=== PATIENT | male | born 1970 | race Two or more races ===

== ENCOUNTER 2021-04-12 10:25 | Inpatient (IN) | payer BC ==
--- NOTE | 2021-04-09 23:11 | NUR ---
PATIENT SUPPORT REPRESENTATIVE NON ADMIT HEPARIN PT IS POST OF NO BLOOD THINNERS FOR AT LEAST 24 HOURS.
[~2021-04-12] VITALS: Ht 188 cm; Wt 97.1 kg
--- NOTE | 2021-04-12 10:39 | NUR ---
PT BIB [facility] FROM HOME C/O LEFT LEG PAIN, HE TOOK "OXY" & NOT HELPING. PT A/OX4. TOLERATING R/A WELL WITH NO SOB AT 98%. SKIN INTACT. CONNECTED PT TO POX AND MONITOR.
--- NOTE | 2021-04-12 10:47 | NUR ---
DR SILVA AT THE BEDSIDE
[2021-04-12] MEDS ORDERED: KETOROLAC TROMETHAMINE INJ 30 MG/ML VIAL IV ONE (11:00)
[2021-04-12 11:21] LABS: BASOPHILS # (AUTO) 0.4 K/uL (0.0-0.2); BASOPHILS % (AUTO) 2.2 % (0.0-2.0); EOSINOPHILS % (AUTO) 0.2 % (0.0-6.0); HEMATOCRIT 54 % (39-51); HEMOGLOBIN 17.9 g/dL (13.5-17.5); LYMPHOCYTES % (AUTO) 5.4 % (20.0-44.0); MEAN CORPUSCULAR HGB CONC 33 g/dl (31.0-36.0); MEAN CORPUSCULAR VOLUME 91 fL (80-96); MONOCYTES # (AUTO) 1.1 K/uL (0.1-1.30); MONOCYTES % (AUTO) 5.9 % (2.0-12.0); NEUTROPHILS # (AUTO) 16.2 K/uL (1.8-8.9); NEUTROPHILS % (AUTO) 86.3 % (43.0-81.0); PLATELET COUNT (AUTO) 257 K/uL (150-450); RED BLOOD CELL COUNT(AUTO) 5.93 MIL/uL (4.5-6.0); WHITE BLOOD COUNT (AUTO) 18.8 K/uL (4.3-11.0)
[2021-04-12] MEDS ORDERED: KETOROLAC TROMETHAMINE 15 MG/ML VIAL ONE (11:24)
--- NOTE | 2021-04-12 11:24 | NUR ---
STEVEN #22G S/L; PATENT AND INTACT
[2021-04-12 12:19] LABS: ALANINE AMINOTRANSFERASE < 6 U/L (12-78); ALBUMIN 3.7 g/dL (3.4-5.0); ALKALINE PHOSPHATASE 74 U/L (46-116); BILIRUBIN,DIRECT 0.3 mg/dL (0.0-0.2); BILIRUBIN,TOTAL 0.7 mg/dL (0.2-1.0); CALCIUM, SERUM 7.2 mg/dL (8.5-10.1); CARBON DIOXIDE 21 mmol/L (21-32); CHLORIDE 94 mmol/L (98-107); CREATININE 4.7 mg/dL (0.6-1.3); GLUCOSE 127 mg/dL (74-106); SODIUM SERUM 127 mmol/L (136-145); TOTAL PROTEIN, SERUM 7.3 g/dL (6.4-8.2); UREA NITROGEN, BLOOD 55 mg/dL (7-18)
[2021-04-12 12:23] LABS: ASPARTATE AMINOTRANSFERASE < 5 U/L (15-37)
[2021-04-12 12:24] LABS: POTASSIUM 6.4 mmol/L (3.5-5.1)
--- NOTE | 2021-04-12 12:26 | NUR ---
K - 6.4. SHIRA SHAHID AWARE
[2021-04-12] MEDS ORDERED: IOHEXOL-300 100 ML VIAL IV ONE (12:28)
--- NOTE | 2021-04-12 12:45 | NUR ---
PT TAKEN TO CT VIA JORGE
--- NOTE | 2021-04-12 12:48 | NUR ---
MOVE SHEET SUBMITTED.
[2021-04-12] MEDS ORDERED: METF-440 PO (12:58)
[2021-04-12] MEDS ORDERED: TEST200V3 IM (12:58)
[2021-04-12] MEDS ORDERED: CHOL100062 PO (12:58)
--- NOTE | 2021-04-12 13:01 | NUR ---
X-RAY TECH AT THE BEDSIDE
--- NOTE | 2021-04-12 13:33 | NUR ---
COVID SWAB DONE AND SENT TO LAB
[2021-04-12] MEDS ORDERED: MAG HYDROX/AL HYDROX/SIMETH 30 ML UDC PO PRN (14:00)
[2021-04-12] MEDS ORDERED: ZOLPIDEM TARTRATE 5 MG TABLET PO PRN (14:00)
[2021-04-12] MEDS ORDERED: Z GUARD REMEDY 2 OZ OINT TP PRN (14:00)
[2021-04-12] MEDS ORDERED: ACETAMINOPHEN 325 MG TABLET PO PRN (14:00)
[2021-04-12] MEDS ORDERED: IV NS 0.9% 1,000 ML IV PRN (14:00)
[2021-04-12] MEDS: IV NS 0.9% 1,000 ML IV PRN ×2 (14:15→22:35)
[2021-04-12] MEDS ORDERED: IV NS 0.9% 1,000 ML BAG IV ONE (15:00)
[2021-04-12] MEDS ORDERED: MORPHINE SULFATE INJ 4 MG/ML DISP.SYRIN ONE (15:58)
--- NOTE | 2021-04-12 16:06 | NUR ---
urine collected and sent to the lab
[2021-04-12] MEDS: MORPHINE SULFATE INJ 2 MG/ML DISP.SYRIN IV PRN (16:07)
[2021-04-12] MEDS ORDERED: SODIUM POLYSTYRENE SULFONATE 15 G/60 ML BOTTLE PO ONE (17:30)
[2021-04-12] MEDS ORDERED: DEXTROSE 50%-WATER 50 ML DISP.SYRIN IVP ONE (17:30)
[2021-04-12] MEDS ORDERED: INSULIN REGULAR, HUMAN 100 UNIT/ML 10 ML VIAL IV ONE (17:30)
[2021-04-12 17:49] LABS: CALCIUM, SERUM 6.4 mg/dL (8.5-10.1); CREATININE 5.6 mg/dL (0.6-1.3)
[2021-04-12] MEDS ORDERED: VANCOMYCIN 1.5 GM in IV D5W 500 ML IV ONE (18:00)
[2021-04-12] MEDS ORDERED: SODIUM POLYSTYRENE SULFONATE 15 G/60 ML BOTTLE ONE (18:04)
[2021-04-12] MEDS ORDERED: DEXTROSE 50%-WATER 50 ML DISP.SYRIN ONE (18:04)
[2021-04-12] MEDS ORDERED: INSULIN REGULAR, HUMAN 100 UNIT/ML 10 ML VIAL ONE (18:05)
[2021-04-12] MEDS ORDERED: LORAZEPAM INJ 2 MG/ML VIAL ONE (18:14)
--- NOTE | 2021-04-12 18:15 | NUR ---
MIDLINE INSERTION PER TOUR CONSULTANT ROBIN. THE ORDER IS READ BACK, VERIFIED. NOTED AND CARRIED OUT.
[2021-04-12] MEDS ORDERED: ALBUTEROL FS 2.5 MG/3 ML VIAL.NEB NEB ONE (18:30)
[2021-04-12] MEDS ORDERED: CALCIUM CHLORIDE 1,000 MG/10 ML DISP.SYRIN IV ONE (18:30)
[2021-04-12] MEDS: PIPERACILLIN /TAZOBACTAM 2.25 G in IV D5W 50 ML IV SCH (18:30)
[2021-04-12] MEDS ORDERED: ALBUTEROL FS 2.5 MG/3 ML VIAL.NEB ONE (18:36)
--- NOTE | 2021-04-12 18:37 | NUR ---
NURSING SUP CALLED AND WANTS CONSENT FORM WITH INFORMATION FAXED TO HER AT [id number]
[2021-04-12] MEDS: LORAZEPAM INJ 2 MG/ML VIAL IV PRN (18:41)
[2021-04-12] MEDS ORDERED: CALCIUM CHLORIDE 1,000 MG/10 ML DISP.SYRIN ONE (18:56)
--- NOTE | 2021-04-12 19:04 | NUR ---
PT GOING TO ICU BED 259 AFTER O.R.
[2021-04-12] MEDS ORDERED: ANESTHESIA TRAY IN PYXIS 1 EA TRAY MC ONE (19:16)
[2021-04-12] MEDS ORDERED: POLYMYXIN B SULFATE 0 UNITS ONE (19:16)
[2021-04-12] MEDS ORDERED: LIDOCAINE HCL/MPF 1% 30 ML VIAL IJ ONE (19:17)
[2021-04-12] MEDS ORDERED: BUPIVACAINE 0.5 % PF 150 MG/30 ML VIAL ONE (19:17)
[2021-04-12] MEDS ORDERED: FENTANYL PF 100MCG/2ML AMPUL ONE (19:24)
[2021-04-12] MEDS ORDERED: ROCURONIUM BROMIDE 50 MG/5 ML ONE ×2 (19:24→20:26)
[2021-04-12] MEDS ORDERED: MIDAZOLAM HCL 2 MG/2ML VIAL ONE (19:24)
[2021-04-12] MEDS ORDERED: BUPIVACAINE 0.25% 75 MG/30 ML VIAL ONE (19:41)
--- NOTE | 2021-04-12 19:43 | NUR ---
REPORT GIVEN TO ICU NURSE
[2021-04-12] MEDS ORDERED: NOREPINEPHRINE 8 MG in IV NS 0.9% 242 ML IV PRN (20:00)
[2021-04-12] MEDS ORDERED: GELATIN SPONGE,ABSORBABLE 1 SPONGE SPONGE TP ONE (20:50)
[2021-04-12] MEDS ORDERED: THROMBIN (BOVINE) 5,000 UNITS VIAL TP ONE (20:51)
[2021-04-12] MEDS ORDERED: HYDROGEN PEROXIDE 480 ML BOTTLE ONE (20:57)
[2021-04-12] MEDS ORDERED: HYDROMORPHONE 1 MG/1 ML DISP.SYRIN ONE (21:39)
[2021-04-12 22:15] VITALS: BP 133/73
--- NOTE | 2021-04-12 22:15 | NUR ---
AIRCRAFT ENGINE MECHANIC SUPERVISOR RCD FROM SURGERY S/P LEFT BUTTOCK AND THIGH FASCIOTOMY W/WOUND VAC. PT IS LETHARGIC AND RESTLESS NOTED WITH GENERALIZED RASH TO BACK AND ABDOMEN. NSR ON MONITOR PLACED ON SIMPLA MASK PT NOTED TO DESATURATE. MARC CATH IN PLACE DRAINING DARK GARRICK URINE. ORDER FOR NS@ 250 ML/HR NOTED.
[2021-04-12 23:00] VITALS: BP 135/87
[2021-04-12 23:08] VITALS: BP 133/73
[2021-04-12] MEDS: HEPARIN SODIUM, PORCINE 5000 UNITS/1 ML VIAL SQ SCH (23:11)
[2021-04-12 23:30] VITALS: BP 136/82
[2021-04-12] MEDS ORDERED: PIPERACILLIN /TAZOBACTAM 2.25 G VIAL IV ONE (23:52)
--- NOTE | 2021-04-12 23:59 | NUR ---
CERTIFIED WELLNESS PROGRAM COORDINATOR VERIFIED W/MD OKAY TO GIVE ZOSYN DESPITE PCN ALLERGY
[2021-04-13] VITALS (48 sets, daily range): BP systolic 101–148; BP diastolic 61–92
[2021-04-13 00:06] LABS: CALCIUM, SERUM 6.4 mg/dL (8.5-10.1); CREATININE 5.8 mg/dL (0.6-1.3)
[2021-04-13 00:10] LABS: POTASSIUM 6.6 mmol/L (3.5-5.1)
--- NOTE | 2021-04-13 00:10 | NUR ---
POLE FRAMER MACHINE NOTIFIED OF ABG AND K 6.6 W/ORDERS RCD.
[2021-04-13] MEDS ORDERED: FUROSEMIDE 40 MG/4 ML VIAL IV STA (00:13)
[2021-04-13] MEDS ORDERED: INSULIN REGULAR, HUMAN 100 UNIT/ML 10 ML VIAL IV STA (00:13)
[2021-04-13] MEDS ORDERED: DEXTROSE 50%-WATER 50 ML DISP.SYRIN IVP STA (00:13)
[2021-04-13] MEDS ORDERED: SODIUM POLYSTYRENE SULFONATE 15 G/60 ML BOTTLE RC STA (00:13)
[2021-04-13] MEDS ORDERED: INSULIN REGULAR, HUMAN 100 UNIT/ML 3 ML VIAL ONE (00:41)
[2021-04-13] MEDS ORDERED: SODIUM POLYSTYRENE SULFONATE 15 G/60 ML BOTTLE ONE (00:42)
[2021-04-13 00:45] LABS: ABG BASE EXCESS -7.8 mmol/L; ABG OXYGEN SATURATION 92.8 % (92.0-98.5); ABG PCO2 37.1 mmHg (35.0-45.0); ABG PO2 73.2 mmHg (75.0-100.0); AaDO2 169.3 mmHg; COHb 0.7 % (0.5-1.5); MetHb 0.2 % (0.0-1.5); SITE, ABG Right Radial; VENT MODE, BG SIMPLE MASK 40%
[2021-04-13] MEDS ORDERED: SODIUM BICARBONATE SYR 50 MEQ/50 ML DISP.SYRIN IV ONE ×2 (01:00→07:30)
[2021-04-13] MEDS ORDERED: IV NS 0.9% 250 ML IV PRN (01:00)
[2021-04-13] MEDS: IV NS 0.9% 1,000 ML IV PRN ×7 (03:25→21:06)
[2021-04-13 04:20] LABS: HEMATOCRIT 41 % (39-51); HEMOGLOBIN 13.6 g/dL (13.5-17.5); LYMPHOCYTES # (AUTO) 0.6 K/uL (0.8-4.8); LYMPHOCYTES % (AUTO) 3.6 % (20.0-44.0); MEAN CORPUSCULAR HGB CONC 34 g/dl (31.0-36.0); MEAN CORPUSCULAR VOLUME 91 fL (80-96); MONOCYTES # (AUTO) 0.8 K/uL (0.1-1.30); MONOCYTES % (AUTO) 4.9 % (2.0-12.0); NEUTROPHILS # (AUTO) 15.2 K/uL (1.8-8.9); NEUTROPHILS % (AUTO) 91.5 % (43.0-81.0); PLATELET COUNT (AUTO) 216 K/uL (150-450); RED BLOOD CELL COUNT(AUTO) 4.47 MIL/uL (4.5-6.0); WHITE BLOOD COUNT (AUTO) 16.6 K/uL (4.3-11.0)
[2021-04-13 04:37] LABS: CREATININE 6.6 mg/dL (0.6-1.3); MAGNESIUM 2.4 mg/dL (1.8-2.4); PHOSPHORUS 6.2 mg/dL (2.5-4.9)
[2021-04-13 04:50] LABS: THYROID STIMULATING HORMONE 0.862 uIU/mL (0.358-3.74)
--- NOTE | 2021-04-13 05:18 | NUR ---
TAXI DANCER 110 ML TOTAL URINE OUTPUT WELL POTASSIUM 6.[address] JESÚS Salvador/ORDERS FOR NEPHROLOGY TO FOLLOW UP.
[2021-04-13 05:20] LABS: CALCIUM, SERUM 5.8 mg/dL (8.5-10.1); POTASSIUM 6.6 mmol/L (3.5-5.1)
[2021-04-13] MEDS ORDERED: PIPERACILLIN /TAZOBACTAM 2.25 G VIAL IV ONE (05:26)
[2021-04-13 05:27] LABS: CREATINE KINASE, TOTAL > 1000 U/L (39-308)
[2021-04-13] MEDS: PIPERACILLIN /TAZOBACTAM 2.25 G in IV D5W 50 ML IV SCH ×5 (05:30→23:25)
--- NOTE | 2021-04-13 06:00 | NUR ---
B2B SALES REPRESENTATIVE PT INCREASINGLY WAKING UP WANTING TO WALK AROUND; RESTLESS PULLING AT IV AND LEADS; REORIENT PT INEFFECTIVE HE HAS EPISODES OF LETHARGY/RESTLESSNESS; BSWR PLACED AT THIS TIME TO PREVENT PT FROM REMOVING MEDICAL DEVICES OR GETTING OUT BED. SISTER MALI PREVIOUSLY EDUCATED ON THE NEED FOR POSSIBLE RESTRAINTS.
--- NOTE | 2021-04-13 07:15 | NUR ---
RN NOTES RECEIVED PT AWAKE. A/O X2-3. ON 8L O2 VIA SIMPLE MASK. NO SOB OR ANY S/S OF ACUTE RESPIRATORY DISTRESS NOTED. SR-ST ON THE MONITOR. L NARE NG TUBE IN PLACE. POSITIVE PLACEMENT CHECKED. MARC CATH IN PLACE. DRAINING YELLOW COLORED URINE. BILATERAL SOFT WRIST RESTRAINTS NOTED, CHECKED FOR CIRCULATION PER PROTOCOL. S/P L BUTTOCK AND L THIGH FASCIOTOMY, WOUND VAC IN PLACE. IV ACCESS ON STEVEN MIDLINE, RFA #22 AND R IJ ALL INTACT, PATENT AND FLUSHED. RUNNING 350ML/HR, INFUSING WELL. SAFETY MEASURES IN PLACE. CALL LIGHT WITHIN REACH. BED LOCKED AND IN LOWEST POSITION WITH SIDE RAILS UP X3. WILL CONTINUE TO MONITOR.
[2021-04-13] MEDS ORDERED: DEXTROSE 50%-WATER 50 ML DISP.SYRIN IVP SCH (07:30)
[2021-04-13] MEDS ORDERED: MINERAL OIL 133 ML (PYXIS) 1 EA ENEMA RC ONE (07:30)
[2021-04-13] MEDS ORDERED: Calcium Gluconate 1GM/10ML 4.65 MEQ in IV D5W 50 ML IV ONE (08:00)
[2021-04-13] MEDS ORDERED: INSULIN REGULAR, HUMAN 100 UNIT/ML 10 ML VIAL IV ONE (08:00)
--- NOTE | 2021-04-13 08:56 | NUR ---
WOUND CARE CONSULT: PT PRESENTS WITH [employer] WOUND VAC TO LEFT BUTTOCK AND THIGH WITH 675ccRED DRAINAGE IN CANISTER. DISCUSSED SKIN PROTECTION WITH NURSING STAFF. MD IN AGREEMENT WITH PLAN OF CARE.
[2021-04-13] MEDS: PANTOPRAZOLE 40 MG VIAL IV SCH (09:04)
[2021-04-13] MEDS: HEPARIN SODIUM, PORCINE 5000 UNITS/1 ML VIAL SQ SCH ×2 (09:15→20:36)
--- NOTE | 2021-04-13 09:27 | NUR ---
WOUND CARE: CANISTER CHANGED WITH 675cc RED DRAINAGE. PHOTO TAKEN BY RN OF LEFT BUTTOCK/THIGH VAC DRESSINGS. ORTHO SURGEON IN TO SEE PT.
[2021-04-13] MEDS ORDERED: HEPARIN SODIUM, PORCINE 5000 UNITS/1 ML VIAL IV ONE (10:00)
[2021-04-13] MEDS: MORPHINE SULFATE INJ 2 MG/ML DISP.SYRIN IV PRN ×3 (10:43→22:32)
--- NOTE | 2021-04-13 11:00 | NUR ---
RN NOTES RIGHT IJ HD CATH PLACED BY DR. BEY AT BEDSIDE. VS STABLE. STAT XRAY ORDERED FOR PLACEMENT.
[2021-04-13] MEDS ORDERED: CLINDAMYCIN IV RTU IN D5W 900 MG/50 ML PIGGYBACK IV SCH (12:00)
[2021-04-13] MEDS: CLINDAMYCIN 900 MG in IV D5W 50 ML IV SCH ×2 (12:34→20:55)
[2021-04-13 13:01] LABS: CREATININE 7.5 mg/dL (0.6-1.3)
[2021-04-13 13:03] LABS: CALCIUM, SERUM 5.8 mg/dL (8.5-10.1); POTASSIUM 6.6 mmol/L (3.5-5.1)
--- NOTE | 2021-04-13 16:20 | NUR ---
RN NOTES HD DONE, OUTPUT OF 500ML. VS STABLE. NOT IN DISTRESS.
[2021-04-13] MEDS ORDERED: VANCOMYCIN 500 MG in IV D5W 100 ML IV PRN (17:00)
--- NOTE | 2021-04-13 19:50 | NUR ---
RN OPENING NOTE ICU REC'D PT IN BED ON 4L OF O2 VIA NC, PT NOT IN DISTRESSED, NO SOB. PT IS A/O X4, ST WITH HR 100 ON THE TELE MONITOR. PT REMAINS WITH WOUND VAC ON LEFT LEG/BUTTOCK AREA, DRAINING SANGUINEOUS FLUID. PT HAS MARC DRAINING VIA GRAVITY, PT HAS RIJ,HD CATH, INTACT. ALSO STEVEN #22, STEVEN MIDLINE BLOOD RETURN NOTED, AND REJ #18 FLUSHED INTACT. RUNNING IVF NS 0.9% @ 350 ORDERED. PT IS S/P HD TODAY. PT IS NPO, AND AWARE. AT THIS TIME NEEDS ATTENDED. SAFETY MEASURES IN PLACE. CALL LIGHT WITHIN REACH WILL CONT TO MONITOR.
--- NOTE | 2021-04-13 20:19 | NUR ---
RN NOTES HD OUTPUT 500ML. VS STABLE. ON 4L O2 VIA NC, NO SOB OR ANY DISTRESS. DENIES PAIN. ALL DUE MEDS GIVEN. NEEDS ATTENDED. KEPT CLEAN AND COMFORTABLE. COMFORTABLY RESTING IN BED. SAFETY MEASURES IN PLACE. CALL LIGHT WITHIN REACH. ENDORSED TO NIGHT RN FOR LEON.
--- NOTE | 2021-04-13 20:34 | NUR ---
RN NOTE HOLD HEPARIN DOSE TONIGHT PER MANUFACTURING FINANCE MANAGER MD ESPINOSA, PT S/P FASCIOTOMY. TO FOLLOW UP IN THE MORNING.
--- NOTE | 2021-04-13 21:45 | NUR ---
RN NOTE GAVE UPDATE TO SISTER MALI TO VISIT TOMORROW
[2021-04-13] MEDS: LORAZEPAM INJ 2 MG/ML VIAL IV PRN (23:58)
[2021-04-14] VITALS (32 sets, daily range): BP systolic 108–138; BP diastolic 67–81
[2021-04-14] MEDS: IV NS 0.9% 1,000 ML IV PRN ×4 (02:26→12:33)
[2021-04-14] MEDS: CLINDAMYCIN 900 MG in IV D5W 50 ML IV SCH (04:31)
[2021-04-14 04:34] LABS: HEMATOCRIT 31 % (39-51); HEMOGLOBIN 10.4 g/dL (13.5-17.5); LYMPHOCYTES # (AUTO) 0.6 K/uL (0.8-4.8); LYMPHOCYTES % (AUTO) 5.6 % (20.0-44.0); MEAN CORPUSCULAR HGB CONC 34 g/dl (31.0-36.0); MEAN CORPUSCULAR VOLUME 91 fL (80-96); MONOCYTES # (AUTO) 1.5 K/uL (0.1-1.30); NEUTROPHILS # (AUTO) 9.2 K/uL (1.8-8.9); NEUTROPHILS % (AUTO) 81.4 % (43.0-81.0); PLATELET COUNT (AUTO) 146 K/uL (150-450); RED BLOOD CELL COUNT(AUTO) 3.37 MIL/uL (4.5-6.0); WHITE BLOOD COUNT (AUTO) 11.4 K/uL (4.3-11.0)
[2021-04-14] MEDS: MORPHINE SULFATE INJ 2 MG/ML DISP.SYRIN IV PRN ×4 (04:35→21:01)
[2021-04-14 04:55] LABS: ALBUMIN 2.1 g/dL (3.4-5.0); ALKALINE PHOSPHATASE 41 U/L (46-116); BILIRUBIN,DIRECT 0.2 mg/dL (0.0-0.2); BILIRUBIN,TOTAL 0.5 mg/dL (0.2-1.0); CARBON DIOXIDE 23 mmol/L (21-32); CHLORIDE 103 mmol/L (98-107); CREATININE 6.7 mg/dL (0.6-1.3); GLUCOSE 102 mg/dL (74-106); PHOSPHORUS 6.2 mg/dL (2.5-4.9); POTASSIUM 5.5 mmol/L (3.5-5.1); SODIUM SERUM 135 mmol/L (136-145); TOTAL PROTEIN, SERUM 4.3 g/dL (6.4-8.2); UREA NITROGEN, BLOOD 61 mg/dL (7-18)
[2021-04-14 05:00] LABS: ALANINE AMINOTRANSFERASE > 1000 U/L (12-78); ASPARTATE AMINOTRANSFERASE > 1000 U/L (15-37)
[2021-04-14 05:03] LABS: CALCIUM, SERUM 5.5 mg/dL (8.5-10.1)
[2021-04-14] MEDS: PIPERACILLIN /TAZOBACTAM 2.25 G in IV D5W 50 ML IV SCH (05:09)
[2021-04-14] MEDS ORDERED: Calcium Gluconate 1GM/10ML 9.3 MEQ in IV D5W 250 ML IV ONE (07:00)
--- NOTE | 2021-04-14 07:23 | NUR ---
WOUND CARE CONSULT: WOUND VAC TO LEFT BUTTOCK AND THIGH FUNCTIONING WELL AT 125mm Hg CONTINUOUS SETTING.
--- NOTE | 2021-04-14 07:30 | NUR ---
RN NOTES PT FOUND SLEEPING DISPLAYING NO S/S OF DISTRESS FLACC = 0 AND BREATHING IS EVEN AND UNLABORED ON 2L O2 NC. R UA MIDLINE, R EJ 18G, R IJ PERMACATH ARE ALL INTACT AND CLEAN. WOUND VAC SUCTIONING AT 125 MMHG, MARKED AT START OF SHIFT. MARC CATH BELOW PATIENT DRAINING BY GRAVITY. VSS, RN WILL MONITOR AND TREAT THROUGHOUT SHIFT. SAFETY MEASURES IN PLACE, BED LOCKED AND IN LOWEST POSITION, SIDE RAILS UPX2, CALL LIGHT WITHIN REACH, BED ALARM ARMED.
--- NOTE | 2021-04-14 07:40 | NUR ---
RN CLOSING NOTE ICU PT BEHAVIOR REMAINS THE SAME, PT SPENT MAJORITY OF NIGHT SLEEPING, PT REFUSED FULL BED BATH, REQUESTED TO BE WHEN MORE AWAKE. PT STILL TURNED AND REPOSITIONED. WOUND VAC OUTPUT IS 300ML. LEGS ARE ELEVATED. PT RECEIVED MORPHINE AND ATIVAN PRN ORDERED FOR PAIN AND AGITATION/ANXIETY. CONTINUOUS IV FLUIDS RUNNING ORDERED. PT CALCIUM IS 5.5, NOTIFIED SAFETY INTERN JESÚS, ORDERS FOR 2GM CALCIUM GLUCONATE CARRIED OUT. DR FREED ALSO NOTIFIED. PT CKMB <600 TRENDING DOWN COMPARED TO BEFORE >1000. SAFETY MEASURES IN PLACE, CALL LIGHT WITHIN REACH. ENDORSED TO DAY SHIFT RN FOR CONTINUATION OF CARE.
--- NOTE | 2021-04-14 08:37 | NUR ---
CRITICAL LAB CKMB > 600. RN WILL INFORM MD
[2021-04-14] MEDS: PANTOPRAZOLE 40 MG VIAL IV SCH (08:49)
[2021-04-14] MEDS: HEPARIN SODIUM, PORCINE 5000 UNITS/1 ML VIAL SQ SCH ×3 (09:00→21:01)
--- NOTE | 2021-04-14 12:30 | NUR ---
SEEN BY ,UPDATED ABOUT PATIENT PROCEDURE WILL BE PLANNING FOR TUESDAY, TO PLACE PATIENT ON RENAL DIET.
--- NOTE | 2021-04-14 16:35 | NUR ---
RN NOTE HD STARTED
--- NOTE | 2021-04-14 19:20 | NUR ---
RN NOTES PT CURRENTLY GETTING HD. PT CURRENTLY SLEEPING DISPLAYING NO S/S OF DISTRESS, FLACC = 0 AND BREATHING IS EVEN AND UNLABORED. WOUND VAC PRODUCED APPROX 200 ML THROUGHOUT SHIFT. DRESSINGS INTACT. VSS, SBAR AND REPORT GIVEN TO PLANT FACILITIES TECHNICIAN. SAFETY MEASURES IN PLACE, BED LOCKED AND IN LOWEST POSITION, SIDE RAILS UPX2, CALL LIGHT WITHIN REACH, BED ALARM ARMED. PT ENDORSED IN STABLE CONDITION FOR LEON, ALL QUESTIONS ANSWERED.
--- NOTE | 2021-04-14 19:30 | NUR ---
RN NOTES RECEIVED PATIETN ON DIALYSIS . ASLEEP WELL. WITH NO SOB OR C/O PAIN. NSR ON MONITOR. SATURATION 100%. IV SITE ON STEVEN MIDLINE, STEVEN G 22 AND REJ G 18 ARE INTACT AND PATENT. RIJ HD CATH IS USING FOR DIALYSIS. WOUND VAC FOR LEFT THIGH AND LT BUTTOCK KEPT SEALED NO LEAKING SOUND. KEPT PT CLEAN AND COMFORTABLE IN BED. CALL LIGHT WITHIN EASY REACH. WILL CONTINUE TO MONITOR.
--- NOTE | 2021-04-14 20:30 | NUR ---
RN NOTES DIALYSIS FINISHED WITH 500 ML REMOVED PER HD NURSE. PATIETN IS AWAKE AND ORIENTED, DINNER SERVED.
[2021-04-14] MEDS: LORAZEPAM INJ 2 MG/ML VIAL IV PRN (23:36)
[2021-04-15] VITALS (18 sets, daily range): BP systolic 124–143; BP diastolic 69–82
[2021-04-15 04:31] LABS: EOSINOPHILS % (AUTO) 0.2 % (0.0-6.0); HEMATOCRIT 29 % (39-51); HEMOGLOBIN 9.8 g/dL (13.5-17.5); LYMPHOCYTES # (AUTO) 1.2 K/uL (0.8-4.8); LYMPHOCYTES % (AUTO) 12.8 % (20.0-44.0); MEAN CORPUSCULAR HGB CONC 35 g/dl (31.0-36.0); MEAN CORPUSCULAR VOLUME 90 fL (80-96); MONOCYTES # (AUTO) 1.2 K/uL (0.1-1.30); MONOCYTES % (AUTO) 12.7 % (2.0-12.0); NEUTROPHILS # (AUTO) 6.9 K/uL (1.8-8.9); NEUTROPHILS % (AUTO) 74.3 % (43.0-81.0); PLATELET COUNT (AUTO) 135 K/uL (150-450); RED BLOOD CELL COUNT(AUTO) 3.16 MIL/uL (4.5-6.0); WHITE BLOOD COUNT (AUTO) 9.3 K/uL (4.3-11.0)
[2021-04-15 04:50] LABS: CREATINE KINASE, TOTAL 22161 U/L (39-308)
[2021-04-15 05:02] LABS: ALBUMIN 2.1 g/dL (3.4-5.0); ALKALINE PHOSPHATASE 42 U/L (46-116); ASPARTATE AMINOTRANSFERASE 787 U/L (15-37); BILIRUBIN,DIRECT 0.2 mg/dL (0.0-0.2); BILIRUBIN,TOTAL 0.7 mg/dL (0.2-1.0); CALCIUM, SERUM 6.6 mg/dL (8.5-10.1); CARBON DIOXIDE 24 mmol/L (21-32); CHLORIDE 103 mmol/L (98-107); CREATININE 6.4 mg/dL (0.6-1.3); GLUCOSE 103 mg/dL (74-106); PHOSPHORUS 5.9 mg/dL (2.5-4.9); POTASSIUM 4.1 mmol/L (3.5-5.1); SODIUM SERUM 136 mmol/L (136-145); TOTAL PROTEIN, SERUM 4.5 g/dL (6.4-8.2); UREA NITROGEN, BLOOD 55 mg/dL (7-18)
[2021-04-15 05:31] LABS: ALANINE AMINOTRANSFERASE > 1000 U/L (12-78)
[2021-04-15] MEDS: MORPHINE SULFATE INJ 2 MG/ML DISP.SYRIN IV PRN ×4 (06:34→22:15)
[2021-04-15] MEDS: IV NS 0.9% 1,000 ML IV PRN (06:36)
--- NOTE | 2021-04-15 07:00 | NUR ---
RN NOTES PATIENT ASLEEP WELL ON BED. BREATHING EVEN AND UNLABORED EVEN ON ROOM AIR. SATURATION REMAINED >95%. AFEBRILE. VSS. PAIN MEDICINE GIVEN ORDERED REMAINED EFFECTIVE. ALL NEEDS ATTENDED. KEPT PT CLEAN AND COMFORTABLE IN BED. CALL LIGHT PROMPTLY ATTENDED. ENDORSED CONTINUITY OF CARE TO AM NURSE.
--- NOTE | 2021-04-15 07:06 | NUR ---
WOUND CARE CONSULT: WOUND VAC CANISTER CHANGED WITH 1000cc RED DRAINAGE. VAC FUNCTIONING WELL AT 125mmHg CONTINUOUS SETTING FOR LEFT BUTTOCK AND THIGH WOUNDS.
--- NOTE | 2021-04-15 07:30 | NUR ---
RN NOTES PT FOUND SUPINE DISPLAYING NO S/S OF ACUTE DISTRESS, PT ENDORSES 8/10 PAIN AND BREATHING EVEN AND UNLABORED ON 2L O2 NC. IV PORTS (ALL 4 OF THEM) ARE PATIENT AND INTACT. WOUND VAC SUCTIONING AT 125 MMHG, CONTAINER JUST CHANGED. MARC CATH BELOW PATIENT DRAINING BY GRAVITY. VSS, WILL CONTINUE TO MONITOR AND TREAT. SAFETY MEASURES IN PLACE, BED LOCKED AND IN LOWEST POSITION, SIDE RAILS UPX2, CALL LIGHT WITHIN REACH, PT INSTRUCTED TO CALL FOR ASSISTANCE.
[2021-04-15] MEDS: HEPARIN SODIUM, PORCINE 5000 UNITS/1 ML VIAL SQ SCH ×2 (09:00→20:05)
[2021-04-15] MEDS: PANTOPRAZOLE 40 MG TABLET.DR PO SCH (09:20)
[2021-04-15] MEDS: CARVEDILOL 3.125 MG TABLET PO SCH ×2 (09:20→21:07)
--- NOTE | 2021-04-15 11:50 | NUR ---
TRANSFER TO ANOTHER UNIT RN CALLED AND GAVE REPORT TO 3W NURSE. PT TRANSPORTED VIA HOSPITAL BED ON BEDSIDE PORTABLE MONITOR. PT IS A&OX4, BREATHING EVEN AND UNLABORED, ENDORSING NO PAIN. ITEMS CHECKED AND BELONGINGS REVIEWED. SBAR AND CHART GIVEN TO 3W STAFF. PT ENDORSED IN STABLE CONDITION FOR LEON. ALL QUESTIONS ANSWERED.
--- NOTE | 2021-04-15 18:54 | NUR ---
COSTUME TECHNICIAN CLOSING NOTES Pt IS A/OX4, CURRENTLY SLEEPING. Pt IS ON 4L OF O2 VIA NASAL CANNULA. NO SIGNS OF RESPIRATORY DISTRESS. NO COMPLAINTS OF PAIN MADE AT THIS TIME, Pt RECEIVED PAIN MED AT 1735. R UA ML AND R IJ FOR HEMODIALYSIS. Pt IS ON TELE MONITOR AND CURRENTLY SINUS RHYTHM WITH 73 BPM. ALL NEEDS MET AT THIS TIME, ALL SAFETY MEASURES ARE IN PLACE, BED IS LOCKED AND IN LOWEST POSITION. CALL LIGHT AND BEDSIDE TABLE WITHIN REACH. WILL ENDORSE TO ONCOMING SHIFT.
--- NOTE | 2021-04-15 19:45 | NUR ---
SENIOR POWER SCHEDULER OPENING NOTES RECEIVED PT IN BED, AWAKE. AOx4, ABLE TO MAKE NEEDS KNOWN. ON 4L/MIN VIA NASAL CANNULA AND TOLERATING WELL. NO SOB NOTED. NO S/SX OF RESPIRATORY DISTRESS NOTED. TELE MONITOR DETECTS SINUS RHYTHM WITH RATE OF 83. IV ACCESS IN STEVEN MIDLINE AND HD R IJ. IV IS INTACT, PATENT, AND FLUSHING WELL. MARC CATHETER DRAINING CLEAR, YELLOW URINE. SAFETY PRECAUTIONS IN PLACE: BED IN LOWEST, LOCKED POSITION, SIDERAILS UPx2, AND BRAKES ON. TABLE AND CALL LIGHT WITHIN REACH. WILL CONTINUE TO MONITOR.
--- NOTE | 2021-04-15 22:15 | NUR ---
ADMINISTERED MORPHINE PER MD ORDER FOR PAIN. VS WNL. WILL CONTINUE TO MONITOR.
--- NOTE | 2021-04-15 22:34 | NUR ---
PER DAYSHIFT NURSE, DOCTOR ORDERED FOR HEPARIN TO BE HOLD PRIOR TO PROCEDURE.
[2021-04-16] VITALS: BP 143/66
[2021-04-16] MEDS: LORAZEPAM INJ 2 MG/ML VIAL IV PRN ×2 (00:07→19:55)
--- NOTE | 2021-04-16 00:07 | NUR ---
ADMINISTERED ATIVAN PER MD ORDER. VS WNL. WILL CONTINUE TO MONITOR.
[2021-04-16 06:48] LABS: BASOPHILS % (AUTO) 0.1 % (0.0-2.0); EOSINOPHILS % (AUTO) 1.7 % (0.0-6.0); HEMATOCRIT 29 % (39-51); LYMPHOCYTES # (AUTO) 1.2 K/uL (0.8-4.8); LYMPHOCYTES % (AUTO) 13.5 % (20.0-44.0); MEAN CORPUSCULAR HGB CONC 35 g/dl (31.0-36.0); MEAN CORPUSCULAR VOLUME 90 fL (80-96); MONOCYTES # (AUTO) 1.1 K/uL (0.1-1.30); MONOCYTES % (AUTO) 12.9 % (2.0-12.0); NEUTROPHILS # (AUTO) 6.3 K/uL (1.8-8.9); NEUTROPHILS % (AUTO) 71.8 % (43.0-81.0); PLATELET COUNT (AUTO) 152 K/uL (150-450); WHITE BLOOD COUNT (AUTO) 8.7 K/uL (4.3-11.0)
--- NOTE | 2021-04-16 06:49 | NUR ---
QA AUTOMATION DEVELOPER CLOSING NOTES PT IN BED, ASLEEP, AWAKENS TO VERBAL STIMULI. AOx4, ABLE TO MAKE NEEDS KNOWN. ON 4L/MIN VIA NASAL CANNULA AND TOLERATING WELL. NO SOB NOTED. NO S/SX OF RESPIRATORY DISTRESS NOTED. TELE MONITOR DETECTS SINUS RHYTHM WITH RATE OF 83. IV ACCESS IN STEVEN MIDLINE AND HD R IJ. IV IS INTACT, PATENT, AND FLUSHING WELL. MARC CATHETER DRAINING CLEAR, YELLOW URINE. ALL NEEDS MET. PT KEPT CLEAN AND DRY. TREATED PAIN ONCE DURING SHIFT. PT KEPT NPO AFTER MIDNIGHT. CONSENTS OBTAINED. SAFETY PRECAUTIONS IN PLACE: BED IN LOWEST, LOCKED POSITION, SIDERAILS UPx2, AND BRAKES ON. TABLE AND CALL LIGHT WITHIN REACH. WILL ENDORSE TO ONCOMING SHIFT FOR LEON.
[2021-04-16 07:16] LABS: BILIRUBIN,DIRECT 0.2 mg/dL (0.0-0.2); BILIRUBIN,TOTAL 0.7 mg/dL (0.2-1.0); MAGNESIUM 2.2 mg/dL (1.8-2.4); POTASSIUM 4.2 mmol/L (3.5-5.1); TOTAL PROTEIN, SERUM 4.6 g/dL (6.4-8.2)
[2021-04-16] MEDS: PANTOPRAZOLE 40 MG TABLET.DR PO SCH (07:30)
[2021-04-16] MEDS ORDERED: BUPIVACAINE 0.5 % PF 150 MG/30 ML VIAL ONE (07:40)
--- NOTE | 2021-04-16 07:45 | NUR ---
WORLD DESIGNER OPENING NOTES PT IN BED, AWAKE, AWAKENS TO VERBAL STIMULI. AOx4, ABLE TO MAKE NEEDS KNOWN. ON 4L/MIN VIA NASAL CANNULA AND TOLERATING WELL. NO SOB NOTED. NO S/SX OF RESPIRATORY DISTRESS NOTED. TELE MONITOR DETECTS SINUS RHYTHM WITH RATE OF 78. IV ACCESS IN STEVEN MIDLINE AND HD R IJ. IV IS INTACT, PATENT, AND FLUSHING WELL. MARC CATHETER DRAINING CLEAR, YELLOW URINE. SAFETY PRECAUTIONS IN PLACE: BED IN LOWEST, LOCKED POSITION, SIDE RAILS UPx2, AND BRAKES ON. TABLE AND CALL LIGHT WITHIN REACH. WILL CONTINUE TO MONITOR PATIENT.
[2021-04-16 08:00] VITALS: BP 145/77
[2021-04-16] MEDS: CARVEDILOL 3.125 MG TABLET PO SCH ×3 (08:02→21:48)
[2021-04-16] MEDS: HEPARIN SODIUM, PORCINE 5000 UNITS/1 ML VIAL SQ SCH ×2 (08:02→21:00)
[2021-04-16] MEDS ORDERED: FENTANYL PF 100MCG/2ML AMPUL ONE ×2 (09:43→10:36)
[2021-04-16] MEDS ORDERED: MIDAZOLAM HCL 2 MG/2ML VIAL ONE (09:44)
[2021-04-16] MEDS ORDERED: BUPIVACAINE 0.25% 75 MG/30 ML VIAL ONE (09:52)
[2021-04-16] MEDS ORDERED: HYDROGEN PEROXIDE 480 ML BOTTLE ONE (10:36)
[2021-04-16] MEDS ORDERED: THROMBIN (BOVINE) 5,000 UNITS VIAL TP ONE (10:39)
[2021-04-16] MEDS ORDERED: GELATIN SPONGE,ABSORBABLE 1 SPONGE SPONGE TP ONE (10:39)
[2021-04-16] MEDS ORDERED: HYDROMORPHONE 1 MG/1 ML DISP.SYRIN ONE ×2 (11:33→12:00)
--- NOTE | 2021-04-16 12:39 | NUR ---
PHOTOGRAPHER NOTES PATIENT BACK FROM OR, AWAKE, A/O X3. VITAL SIGNS: BP 151/90 HR 70 T 98 RR 18 OZ 100 ON 3 LPM VIA NASAL CANNULA.
--- NOTE | 2021-04-16 12:40 | NUR ---
POST OP ORDERS RESUME ALL MEDS AND DIET FIRST DRESSING CHANGE BY WOUND VAC AT 125 CONTINUOUS BEDREST
[2021-04-16 12:49] VITALS: BP 151/90
[2021-04-16] MEDS: MORPHINE SULFATE INJ 2 MG/ML DISP.SYRIN IV PRN ×3 (12:55→21:47)
--- NOTE | 2021-04-16 13:04 | NUR ---
TELEPHONE OPERATOR CHIEF NOTES PATIENT COMPLAINING OF POST OP PAIN 10 OUT OF 10 REQUESTING PAIN MEDICATION. BP 151/90 O2 100% ON 3 L. PRN MORPHINE 4MG/2MLS ADMINISTERED PER MD ORDER. WILL REASSESS.
[2021-04-16 15:56] VITALS: BP 149/83
[2021-04-16] MEDS: IV NS 0.9% 1,000 ML IV PRN (16:27)
--- NOTE | 2021-04-16 17:48 | NUR ---
AUGER MILL OPERATOR NOTES PATIENT COMPLAINING OF POST OP PAIN 8 OUT OF 10 REQUESTING PAIN MEDICATION. PRN MORPHINE 4MG/2MLS ADMINISTERED PER MD ORDER. WILL REASSESS.
--- NOTE | 2021-04-16 18:40 | NUR ---
DYE AUTOMATION OPERATOR CLOSING NOTES PT IN BED, ASLEEP, AWAKENS TO VERBAL STIMULI. AOx4, ABLE TO MAKE NEEDS KNOWN. ON 3L/MIN VIA NASAL CANNULA AND TOLERATING WELL. NO SOB NOTED. NO S/SX OF RESPIRATORY DISTRESS NOTED. TELE MONITOR DETECTS SINUS RHYTHM WITH RATE OF 75. IV ACCESS IN STEVEN MIDLINE RUNNING NS @ 350 MLS/HR AND HD R IJ. IV IS INTACT, PATENT, AND FLUSHING WELL. MARC CATHETER DRAINING CLEAR, YELLOW URINE. ALL NEEDS MET. PT KEPT CLEAN AND DRY. PAIN TREATED WITH PRN MORPHINE. SAFETY PRECAUTIONS IN PLACE: BED IN LOWEST, LOCKED POSITION, SIDE RAILS UPx2, AND BRAKES ON. TABLE AND CALL LIGHT WITHIN REACH. WILL ENDORSE TO ONCOMING SHIFT FOR LEON.
[2021-04-16] MEDS: ANCEF 1 GM/50 ML D5W IV SCH (18:48)
[2021-04-16 20:00] VITALS: BP 153/90
--- NOTE | 2021-04-16 20:34 | NUR ---
Spoke with Dr. Roy said to stop IVF and for HD today. Called [facility] to try and set up dialysis -stated dialysis nurse would call back.
--- NOTE | 2021-04-16 21:41 | NUR ---
holding heparin d/t s/p sacral debridement today. Will monitor for wound vac output/bleeding.
--- NOTE | 2021-04-16 23:43 | NUR ---
Per charge accounts audit clerk HD nurse is currently with ICU patient as priority.
[2021-04-17] VITALS: BP_SYST 142; BP_SYST 145; BP_DIAS 82; BP_DIAS 87
[2021-04-17] MEDS: LORAZEPAM INJ 2 MG/ML VIAL IV PRN ×3 (00:08→21:51)
[2021-04-17 04:00] VITALS: BP 150/76
--- NOTE | 2021-04-17 04:13 | NUR ---
HD ended. No fluid taken off per HD nurse, cleansing only. Patient tolerated well bu t now requests PRN pain medicine d/t L sided pain more focused in L buttock and leg. Also, Wound vac almost full 975cc. Changed to new canister.
[2021-04-17] MEDS: MORPHINE SULFATE INJ 2 MG/ML DISP.SYRIN IV PRN ×5 (04:14→23:45)
[2021-04-17] MEDS: ANCEF 1 GM/50 ML D5W IV SCH (04:45)
--- NOTE | 2021-04-17 04:46 | NUR ---
ancef late d/t HD ongoing
--- NOTE | 2021-04-17 05:20 | NUR ---
At 0515 pt. still c/o 12/16 pain morphine not effective d/t pain med being late d/t HD. RELATIONSHIP COUNSELOR identification clerk gave new order toradol 15mg x1 IV NOW.
[2021-04-17] MEDS ORDERED: KETOROLAC TROMETHAMINE INJ 30 MG/ML VIAL IV ONE ×2 (05:30→23:30)
--- NOTE | 2021-04-17 07:28 | NUR ---
Patient awake most of night d/t HD then pain following, but finally able to go to sleep following pain paramedic supervisor and small BM. pain is to L side of body particularly worse in L buttock and Leg/foot. Patient also c/o anxiety x2 and visible upon clinical assessment as well PRN Ativan given as per MD order.
--- NOTE | 2021-04-17 07:30 | NUR ---
600cc output to WoundVac this shift. serosanguineous
--- NOTE | 2021-04-17 07:31 | NUR ---
WIRE BRUSH MAKER OPENING NOTES RECEIVED PT IN BED, AWAKE, AWAKENS TO VERBAL STIMULI. AOx4, ABLE TO MAKE NEEDS KNOWN. ON 4L/MIN VIA NASAL CANNULA AND TOLERATING WELL. BREATHING EVENLY AND NONLABORED. NO SOB NOTED. NO S/SX OF RESPIRATORY DISTRESS NOTED. TELE MONITOR DETECTS SINUS RHYTHM WITH RATE OF 78. IV ACCESS IN STEVEN MIDLINE AND HD R IJ. IV IS INTACT, PATENT, AND FLUSHING WELL. MARC CATHETER DRAINING CLEAR, YELLOW URINE. SAFETY PRECAUTIONS IN PLACE: BED IN LOWEST, LOCKED POSITION, SIDE RAILS UPx2, AND BRAKES ON. TABLE AND CALL LIGHT WITHIN REACH. WILL CONTINUE TO MONITOR
[2021-04-17 07:35] LABS: HEMATOCRIT 29 % (39-51); HEMOGLOBIN 9.8 g/dL (13.5-17.5); LYMPHOCYTES # (AUTO) 0.9 K/uL (0.8-4.8); LYMPHOCYTES % (AUTO) 6.9 % (20.0-44.0); MEAN CORPUSCULAR HGB CONC 34 g/dl (31.0-36.0); MEAN CORPUSCULAR VOLUME 91 fL (80-96); MONOCYTES # (AUTO) 1.4 K/uL (0.1-1.30); MONOCYTES % (AUTO) 10.6 % (2.0-12.0); NEUTROPHILS # (AUTO) 10.9 K/uL (1.8-8.9); NEUTROPHILS % (AUTO) 82.5 % (43.0-81.0); PLATELET COUNT (AUTO) 178 K/uL (150-450); RED BLOOD CELL COUNT(AUTO) 3.14 MIL/uL (4.5-6.0); WHITE BLOOD COUNT (AUTO) 13.2 K/uL (4.3-11.0)
[2021-04-17 07:51] LABS: BILIRUBIN,DIRECT 0.2 mg/dL (0.0-0.2); BILIRUBIN,TOTAL 0.6 mg/dL (0.2-1.0); CALCIUM, SERUM 7.4 mg/dL (8.5-10.1); MAGNESIUM 2.1 mg/dL (1.8-2.4); PHOSPHORUS 6.6 mg/dL (2.5-4.9); POTASSIUM 4.3 mmol/L (3.5-5.1); TOTAL PROTEIN, SERUM 4.9 g/dL (6.4-8.2)
[2021-04-17 07:57] LABS: CREATININE 8.6 mg/dL (0.6-1.3)
[2021-04-17 08:00] VITALS: BP 141/77
--- NOTE | 2021-04-17 08:53 | NUR ---
WOUND CARE FOLLOW UP: [employer]CI VAC FUNCTIONING WELL AT 125mmHg CONTINUOUS SETTING WITH APPROX. 250cc RED DRAINAGE IN CANISTER.
[2021-04-17] MEDS: PANTOPRAZOLE 40 MG TABLET.DR PO SCH (09:10)
[2021-04-17] MEDS: CARVEDILOL 3.125 MG TABLET PO SCH ×2 (09:10→20:13)
[2021-04-17] MEDS: HEPARIN SODIUM, PORCINE 5000 UNITS/1 ML VIAL SQ SCH ×2 (09:13→20:17)
--- NOTE | 2021-04-17 10:32 | NUR ---
ADMINISTERED MORPHINE FOR PAIN PER MD ORDER. VS WNL. WILL CONTINUE TO MONITOR.
[2021-04-17 12:00] VITALS: BP 139/83
--- NOTE | 2021-04-17 14:30 | NUR ---
ADMINISTERED MORPHINE FOR PAIN PER MD ORDER. VS WNL. WILL CONTINUE TO MONITOR.
--- NOTE | 2021-04-17 14:41 | NUR ---
RECEIVED CRITICAL VALUE OF CREATININE KINASE - MB OF 14.3. WILL REPORT TO
--- NOTE | 2021-04-17 14:41 | NUR ---
GAVE REPORT TO ANALI, PATIENT IS STABLE.
[2021-04-17 16:00] VITALS: BP 142/88
--- NOTE | 2021-04-17 18:30 | NUR ---
METAL PATTERNMAKER APPRENTICE CLOSING NOTES PT IN BED, AWAKE, AWAKENS TO VERBAL STIMULI. AOx4, ABLE TO MAKE NEEDS KNOWN. ON 4L/MIN VIA NASAL CANNULA AND TOLERATING WELL. BREATHING EVENLY AND NONLABORED. NO SOB NOTED. NO S/SX OF RESPIRATORY DISTRESS NOTED. TELE MONITOR DETECTS SINUS RHYTHM WITH RATE OF 78. IV ACCESS IN STEVEN MIDLINE AND HD R IJ. IV IS INTACT, PATENT, AND FLUSHING WELL. MARC CATHETER DRAINING CLEAR, YELLOW URINE. WOUND VAC ADJUSTED DURING SHIFT 850 ML OUT, ALL MEDICATIONS GIVEN ORDERED. PAIN MEDICATION GIVEN DURING SHIFT VITALS REMAINED WNL, SAFETY PRECAUTIONS IN PLACE: BED IN LOWEST, LOCKED POSITION, SIDE RAILS UPx2, AND BRAKES ON. TABLE AND CALL LIGHT WITHIN REACH. WILL ENDORSE TO ONCOMING SHIFT
--- NOTE | 2021-04-17 19:22 | NUR ---
RN OPENING NOTES Patient is resting in bed A&Ox4, states he is still in 8/10 pain especially after being cleaned and repositioned. Will give pain medication as per MD order. 400cc serosanguineous output to wound vac noted at this time. L side of body still mildly edematous. No signs of resp. or cardiac distress. Will continue to monitor.
[2021-04-17 20:00] VITALS: BP 151/82
--- NOTE | 2021-04-17 23:20 | NUR ---
Pt. reports 10/10 pain and morphine not due for another hour. notified provider on-call with new order for toradol 15mg IV x1 now.
[2021-04-18] VITALS: BP 146/87
[2021-04-18 04:00] VITALS: BP 137/77
[2021-04-18] MEDS: MORPHINE SULFATE INJ 2 MG/ML DISP.SYRIN IV PRN ×5 (04:02→22:41)
[2021-04-18] MEDS: LORAZEPAM INJ 2 MG/ML VIAL IV PRN ×2 (06:05→16:50)
--- NOTE | 2021-04-18 07:30 | NUR ---
MAGALY NOTES WITH WOUND VAC AT 100CC LEVEL OF SEROSANGUINOUS PUTPUT. Addendum: 04/18/21 at 1117 by JAIME HANNA RN ERROR
--- NOTE | 2021-04-18 07:30 | NUR ---
RN NOTES WITH WOUND VAC AT 100CC LEVEL OF SEROSANGUINOUS OUTPUT.
--- NOTE | 2021-04-18 07:30 | NUR ---
RN OPENING NOTES RECEIVED PATIENT ON BED, AWAKE AND A/O X4. ON ROOM AIR BREATHING EVENLY AND UNLABORED. NOT IN DISTRESS. WITH IV ACCESS AT RIGHT UPPER ARM MIDLINE, SALINE LOCKED AND AT RIGHT EJ, SALINE LOCKED. BOTH IV SITES ARE PATENT AND INTACT. WITH RIGHT IJ FOR HD IN PLACE. FOR HEMODIALYSIS TODAY. WITH NO COMPLAINTS OF PAIN AT THIS TIME. SAFETY MEASURES IN PLACE. CALL LIGHT WITHIN REACH. BED ON LOWEST AND LOCKED POSITION, SIDE RAILS UP X2. WILL CONTINUE TO MONITOR.
--- NOTE | 2021-04-18 07:54 | NUR ---
750cc serosanguineous output to wound vac on this shift. working well. Pt. c/o pain and anxiety with relief from PRN meds. No other overnight events. VSS.
[2021-04-18 08:00] VITALS: BP 155/92
[2021-04-18] MEDS: CARVEDILOL 3.125 MG TABLET PO SCH ×2 (08:53→21:45)
[2021-04-18] MEDS: PANTOPRAZOLE 40 MG TABLET.DR PO SCH (08:53)
[2021-04-18] MEDS: HEPARIN SODIUM, PORCINE 5000 UNITS/1 ML VIAL SQ SCH ×2 (09:01→21:48)
[2021-04-18 11:55] LABS: BASOPHILS % (AUTO) 0.2 % (0.0-2.0); EOSINOPHILS % (AUTO) 5.4 % (0.0-6.0); HEMATOCRIT 30 % (39-51); HEMOGLOBIN 10.2 g/dL (13.5-17.5); LYMPHOCYTES # (AUTO) 1.5 K/uL (0.8-4.8); LYMPHOCYTES % (AUTO) 13.3 % (20.0-44.0); MEAN CORPUSCULAR HGB CONC 34 g/dl (31.0-36.0); MEAN CORPUSCULAR VOLUME 91 fL (80-96); MONOCYTES # (AUTO) 1.3 K/uL (0.1-1.30); MONOCYTES % (AUTO) 11.5 % (2.0-12.0); NEUTROPHILS # (AUTO) 7.6 K/uL (1.8-8.9); NEUTROPHILS % (AUTO) 69.6 % (43.0-81.0); PLATELET COUNT (AUTO) 204 K/uL (150-450); WHITE BLOOD COUNT (AUTO) 10.9 K/uL (4.3-11.0)
[2021-04-18 12:11] LABS: CALCIUM, SERUM 7.2 mg/dL (8.5-10.1); MAGNESIUM 2.1 mg/dL (1.8-2.4); PHOSPHORUS 6.2 mg/dL (2.5-4.9); POTASSIUM 4.2 mmol/L (3.5-5.1)
[2021-04-18 12:13] LABS: CREATININE 8.5 mg/dL (0.6-1.3)
[2021-04-18 16:00] VITALS: BP 155/93
--- NOTE | 2021-04-18 19:20 | NUR ---
RN OPENING NOTES RECEIVED PATIENT ON BED, ASLEEP AND A/O X4. ON ROOM AIR BREATHING EVEN AND UNLABORED. NOT IN RESPIRATORY DISTRESS NOTED, WITH IV ACCESS AT RIGHT UPPER ARM MIDLINE, SALINE LOCKED AND AT RIGHT EJ, SALINE LOCKED. BOTH IV SITES ARE PATENT AND INTACT. WITH RIGHT IJ FOR HD IN PLACE.NO COMPLAINTS OF PAIN AT THIS TIME. SAFETY MEASURES IN PLACE. CALL LIGHT WITHIN REACH. BED ON LOWEST AND LOCKED POSITION, SIDE RAILS UP X2. WILL CONTINUE TO MONITOR PATIENT ACCDGLY.
--- NOTE | 2021-04-18 19:37 | NUR ---
MS RN CLOSING NOTES PATIENT ON BED, RESTING AND A/O X4. ON ROOM AIR BREATHING EVENLY AND UNLABORED. NOT IN DISTRESS. WITH IV ACCESS AT RIGHT UPPER ARM MIDLINE, SALINE LOCKED AND AT RIGHT EJ, SALINE LOCKED. BOTH IV SITES ARE PATENT AND INTACT. WITH RIGHT IJ FOR HD IN PLACE. WITH NO COMPLAINTS OF PAIN AT THIS TIME. DUE MEDS GIVEN. SAFETY MEASURES IN PLACE. CALL LIGHT WITHIN REACH. BED ON LOWEST AND LOCKED POSITION, SIDE RAILS UP X2. WILL ENDORSE TO NEXT SHIFT FOR LEON.
[2021-04-18 20:00] VITALS: BP 149/90
--- NOTE | 2021-04-18 22:45 | NUR ---
RN NOTES PATIENT C/O PAIN AT HIS LLE 10/10 PAIN SCALE, MORPHINE 4 MG IV GIVEN ORDERED PRN DOSE. PLACED PT. IN COMFORTABLE POSITION KEPT HIM RESTED. WILL CONTINUE TO MONITOR ACCDGLY
[2021-04-19] MEDS: LORAZEPAM INJ 2 MG/ML VIAL IV PRN ×5 (00:17→20:19)
[2021-04-19] MEDS: MORPHINE SULFATE INJ 2 MG/ML DISP.SYRIN IV PRN ×5 (02:41→21:50)
--- NOTE | 2021-04-19 02:41 | NUR ---
RN NOTES PATIENT C/O PAIN AT HIS LLE 10/10 PAIN SCALE, MORPHINE 4 MG IV GIVEN ORDERED PRN DOSE. PLACED PT. IN COMFORTABLE POSITION AND KEPT HIM RESTED. WILL CONTINUE TO MONITOR ACCDGLY
--- NOTE | 2021-04-19 06:18 | NUR ---
RN CLOSING NOTES PATIENT ON BED, AWAKE AND A/O X4. ON ROOM AIR BREATHING EVEN AND UNLABORED. NOT IN RESPIRATORY DISTRESS NOTED, WITH IV ACCESS AT RIGHT UPPER ARM MIDLINE, SALINE LOCKED AND AT RIGHT EJ, SALINE LOCKED. BOTH IV SITES ARE PATENT AND INTACT. WITH RIGHT IJ FOR HD IN PLACED, NO S/SX OF BLEEDING AT THE SITE.NO COMPLAINTS OF PAIN AT THIS TIME. ALL NEEDS ATTENDED. PATIENT WITH WOUN VAC. WITH OUTPUT OF 575 ML, SEROSANGUINEOUS DRAINAGE.SAFETY MEASURES IN PLACE. CALL LIGHT WITHIN REACH. BED ON LOWEST AND LOCKED POSITION, SIDE RAILS UP X2. WILL ENDORSED PT. TO DAY TIME SHIFT NURSE FOR LEON.
--- NOTE | 2021-04-19 07:30 | NUR ---
MS RN OPENING NOTES RECEIVED PATIENT ON BED, AWAKE AND A/O X4. ON ROOM AIR BREATHING EVEN AND UNLABORED. NOT IN RESPIRATORY DISTRESS NOTED, WITH IV ACCESS AT RIGHT UPPER ARM MIDLINE, SALINE LOCKED AND AT RIGHT EJ, SALINE LOCKED. BOTH IV SITES ARE PATENT AND INTACT. WITH RIGHT IJ FOR HD IN PLACED, NO S/SX OF BLEEDING AT THE SITE.NO COMPLAINTS OF PAIN AT THIS TIME. PATIENT WITH WOUND VAC DRAINING SEROSANGUINEOUS FLUID AT THE LEVEL OF 100CC. SAFETY MEASURES IN PLACE. CALL LIGHT WITHIN REACH. BED ON LOWEST AND LOCKED POSITION, SIDE RAILS UP X2. WILL CONTINUE TO MONITOR.
[2021-04-19 08:00] VITALS: BP 158/80
[2021-04-19] MEDS: CARVEDILOL 3.125 MG TABLET PO SCH ×2 (09:08→20:31)
[2021-04-19] MEDS: HEPARIN SODIUM, PORCINE 5000 UNITS/1 ML VIAL SQ SCH (09:10)
[2021-04-19] MEDS: PANTOPRAZOLE 40 MG TABLET.DR PO SCH (09:16)
[2021-04-19] MEDS ORDERED: NEPRO VAN 237 ML CAN PO PRN (12:00)
[2021-04-19 12:09] LABS: CALCIUM, SERUM 7.6 mg/dL (8.5-10.1); MAGNESIUM 2.3 mg/dL (1.8-2.4); POTASSIUM 5.3 mmol/L (3.5-5.1)
[2021-04-19 12:18] LABS: CREATININE 10.1 mg/dL (0.6-1.3); PHOSPHORUS 8.1 mg/dL (2.5-4.9)
[2021-04-19] MEDS ORDERED: ANESTHESIA TRAY IN PYXIS 1 EA TRAY MC ONE (14:10)
[2021-04-19 16:20] LABS: BASOPHILS % (AUTO) 0.3 % (0.0-2.0); EOSINOPHILS % (AUTO) 4.8 % (0.0-6.0); HEMATOCRIT 30 % (39-51); HEMOGLOBIN 10.1 g/dL (13.5-17.5); LYMPHOCYTES # (AUTO) 1.2 K/uL (0.8-4.8); LYMPHOCYTES % (AUTO) 11.4 % (20.0-44.0); MEAN CORPUSCULAR HGB CONC 34 g/dl (31.0-36.0); MEAN CORPUSCULAR VOLUME 90 fL (80-96); MONOCYTES # (AUTO) 1.2 K/uL (0.1-1.30); MONOCYTES % (AUTO) 12.1 % (2.0-12.0); NEUTROPHILS # (AUTO) 7.4 K/uL (1.8-8.9); NEUTROPHILS % (AUTO) 71.4 % (43.0-81.0); PLATELET COUNT (AUTO) 191 K/uL (150-450); RED BLOOD CELL COUNT(AUTO) 3.28 MIL/uL (4.5-6.0); WHITE BLOOD COUNT (AUTO) 10.3 K/uL (4.3-11.0)
--- NOTE | 2021-04-19 19:15 | NUR ---
MS RN CLOSING NOTES PATIENT ON BED, AWAKE AND A/O X4. ON ROOM AIR BREATHING EVENLY AND UNLABORED. NOT IN RESPIRATORY DISTRESS NOTED, WITH IV ACCESS AT RIGHT UPPER ARM MIDLINE, SALINE LOCKED. BOTH IV SITES ARE PATENT AND INTACT. WITH RIGHT IJ FOR HD IN PLACED, NO S/SX OF BLEEDING AT THE SITE.NO COMPLAINTS OF PAIN AT THIS TIME. PATIENT WITH WOUND VAC DRAINING SEROSANGUINEOUS FLUID AT THE LEVEL OF 550CC. WITH MARC CATHETER DRAINING WELL AT THE LEVEL OF 350CC. SAFETY MEASURES IN PLACE. CALL LIGHT WITHIN REACH. BED ON LOWEST AND LOCKED POSITION, SIDE RAILS UP X2. WILL ENDORSE TO NEXT SHIFT FOR LEON.
--- NOTE | 2021-04-19 19:46 | NUR ---
RN OPENING NOTES RECEIVED PATIENT ON BED, AWAKE AND A/O X4. ON ROOM AIR BREATHING EVEN AND UNLABORED. NOT IN RESPIRATORY DISTRESS NOTED, WITH IV ACCESS AT RIGHT UPPER ARM MIDLINE, SALINE .PATENT AND INTACT. WITH RIGHT IJ FOR HD IN PLACE. WITH MARC CATHETER, DRAINING YELLOWISH URINE DRAINAGE. PATIENT WITH WOUND VACC. DRAINAGE, WITH SEROSANGUINEOUS DRAINAGE.NO COMPLAINTS OF PAIN AT THIS TIME. SAFETY MEASURES IN PLACE. CALL LIGHT WITHIN REACH. BED ON LOWEST AND LOCKED POSITION, SIDE RAILS UP X2. WILL CONTINUE TO MONITOR PATIENT ACCDGLY.
--- NOTE | 2021-04-19 20:20 | NUR ---
RN NOTES PATIENT VERBALIZES THAT HE IS ANXIOUS, ATIVAN 1 MG IV PRN DOSE GIVEN AT 0322. WILL CONTINUE TO MONITOR PT. ACCDGLY
[2021-04-19 20:47] VITALS: BP 180/89
--- NOTE | 2021-04-19 21:19 | NUR ---
RN NOTES RECEIVED A CALL FROM [facility] TO WITHHOLD [facility]. SQ,NOTED AND CARRIED OUT.
--- NOTE | 2021-04-19 21:42 | NUR ---
RN NOTES BP WAS RECHECKED 128/90, HR= 87. PLACED PATIENT IN COMFORTABLE POSITION. CARVEDILOL MEDS. GIVEN ROUTINE ORDER.
--- NOTE | 2021-04-19 21:50 | NUR ---
RN NOTES PATIENT C/O SEVERE PAIN 10/10 AT LLE, PRN MORPHINE SO4 IV GIVEN ORDERED. PLACED PT. IN COMFORTABLE POSITION. WILL CONTINUE TO MONITOR PT. ACCDGLY
[2021-04-19] MEDS: HYDROCODONE/APAP 5/325MG TABLET PO PRN (23:44)
--- NOTE | 2021-04-19 23:50 | NUR ---
RN NOTES PATIENT C/O PAIN AT [facility] P.S OF 11/15, PRN NORCO 5/325 GIVEN ORDERED AT 2344. PATIENT SEEN SLEEPING COMFORTABLY AT 1215
[2021-04-20] MEDS: MORPHINE SULFATE INJ 2 MG/ML DISP.SYRIN IV PRN ×4 (01:51→18:34)
[2021-04-20] MEDS: LORAZEPAM INJ 2 MG/ML VIAL IV PRN ×5 (03:22→22:37)
--- NOTE | 2021-04-20 03:27 | NUR ---
RN NOTES PATIENT VERBALIZES THAT HE IS ANXIOUS, ATIVAN 1 MG IV PRN DOSE GIVEN AT 0322. WILL CONTINUE TO MONITOR PT. ACCDGLY
--- NOTE | 2021-04-20 06:32 | NUR ---
RN CLOSING NOTES PATIENT ON BED, AWAKE AND A/O X4. ON ROOM AIR BREATHING EVEN AND UNLABORED. NOT IN RESPIRATORY DISTRESS NOTED, WITH IV ACCESS AT RIGHT UPPER ARM MIDLINE, PATENT AND INTACT. WITH RIGHT IJ FOR HD IN PLACED, NO S/SX OF BLEEDING AT THE SITE.NO COMPLAINTS OF PAIN AT THIS TIME. ALL NEEDS ATTENDED. PATIENT WITH WOUN VAC. WITH OUTPUT OF ML, SEROSANGUINEOUS DRAINAGE.WITH F.C DRAINING YELLOWISH URINE. ADVISED PT. ON NPO POST MIDNIGHT, WITH COMPLIANCE NOTED.SAFETY MEASURES IN PLACE. CALL LIGHT WITHIN REACH. BED ON LOWEST AND LOCKED POSITION, SIDE RAILS UP X2. WILL ENDORSED PT. TO DAY TIME SHIFT NURSE FOR LEON.
--- NOTE | 2021-04-20 07:00 | NUR ---
RN MS OPENING NOTES RECEIVED Pt IN BED, AWAKE AND A/O X4. ON ROOM AIR BREATHING IS EVEN AND UNLABORED. NO SOB OR SIGNS OF RESPIRATORY DISTRESS NOTED, NO COMPLAINTS OF PAIN AT THIS TIME. IV ACCESS ON RIGHT UPPER ARM MIDLINE, SALINE LOCK. IT IS PATENT AND INTACT. Pt HAS A RIGHT IJ FOR HD IN PLACE. WITH MARC CATHETER, DRAINING YELLOWISH URINE. Pt HAS A WOUND VACC. DRAINAGE, WITH SEROSANGUINEOUS DRAINAGE. SAFETY MEASURES IN PLACE. CALL LIGHT WITHIN REACH. BED IS LOCKED AND IN LOWEST POSITION, SIDE RAILS UP X2. WILL CONTINUE TO MONITOR THROUGHOUT THE SHIFT
[2021-04-20 07:18] LABS: BASOPHILS % (AUTO) 0.3 % (0.0-2.0); EOSINOPHILS % (AUTO) 4.4 % (0.0-6.0); HEMATOCRIT 30 % (39-51); HEMOGLOBIN 10.1 g/dL (13.5-17.5); LYMPHOCYTES # (AUTO) 1.1 K/uL (0.8-4.8); LYMPHOCYTES % (AUTO) 10.8 % (20.0-44.0); MEAN CORPUSCULAR HGB CONC 34 g/dl (31.0-36.0); MEAN CORPUSCULAR VOLUME 91 fL (80-96); MONOCYTES # (AUTO) 1.3 K/uL (0.1-1.30); MONOCYTES % (AUTO) 12.9 % (2.0-12.0); NEUTROPHILS # (AUTO) 7.4 K/uL (1.8-8.9); NEUTROPHILS % (AUTO) 71.6 % (43.0-81.0); PLATELET COUNT (AUTO) 188 K/uL (150-450); RED BLOOD CELL COUNT(AUTO) 3.24 MIL/uL (4.5-6.0); WHITE BLOOD COUNT (AUTO) 10.4 K/uL (4.3-11.0)
[2021-04-20] MEDS: PANTOPRAZOLE 40 MG TABLET.DR PO SCH (07:30)
[2021-04-20 07:31] LABS: CALCIUM, SERUM 7.9 mg/dL (8.5-10.1); MAGNESIUM 2.5 mg/dL (1.8-2.4)
[2021-04-20 07:39] LABS: CREATININE 11.9 mg/dL (0.6-1.3); POTASSIUM 6.4 mmol/L (3.5-5.1)
[2021-04-20 07:40] LABS: PHOSPHORUS 9.7 mg/dL (2.5-4.9)
--- NOTE | 2021-04-20 07:45 | NUR ---
RN MS NOTES: MEDS Pt IS CURRENTLY NPO DO TO SCHEDULED PROCEDURE THIS AM.
[2021-04-20 08:00] VITALS: BP 154/88
--- NOTE | 2021-04-20 08:14 | NUR ---
RN MS NOTES- LABS Pt HAS CRITICAL LAB VALUES OF K+6.4, BUN 100, CR 11.9, PHOS 9.7. NOTIFIED PRIOR TO SCHEDULED PROCEDURE THIS AM.
[2021-04-20] MEDS ORDERED: BUPIVACAINE 0.5 % PF 150 MG/30 ML VIAL ONE (08:51)
[2021-04-20] MEDS: CARVEDILOL 3.125 MG TABLET PO SCH ×2 (09:00→22:11)
[2021-04-20] MEDS: HYDROCODONE/APAP 5/325MG TABLET PO PRN (11:26)
--- NOTE | 2021-04-20 19:10 | NUR ---
RN opening notes Received Pt from morning nurse. Pt is laying in bed comfortably watching TV. Pt is alert and orinetedX4. Respiration is normal in room air. No SOB. No S/s of distress noted. STEVEN midline is clean, intact. RIJ HD cath is clean and intact, elizalde cath is intact and draining yellow urine. Wound vac is intact. Safety precautions is maintained. bed at low position, brakes locked, side rails upX3, bed alarm is on and call light is within reach. will continue to monitor.
--- NOTE | 2021-04-20 19:15 | NUR ---
LEYLA N CLOSING NOTES Pt IN BED, AWAKE AND A/O X4. ON ROOM AIR, BREATHING IS EVEN AND UNLABORED. NO RESPIRATORY DISTRESS NOTED, WITH IV ACCESS AT RIGHT UPPER ARM MIDLINE, PATENT AND INTACT. WITH RIGHT IJ FOR HD . NO S/SX OF BLEEDING AT THE SITE. NO COMPLAINTS OF PAIN AT THIS TIME. ALL NEEDS ATTENDED. Pt HAS A WOUND-VAC WITH SEROSANGUINEOUS DRAINAGE AND MARC WITH YELLOWISH URINE. SAFETY MEASURES IN PLACE. CALL LIGHT AND BEDSIDE TABLE WITHIN REACH. BED IS LOCKED AND IN LOWEST POSITION POSITION, SIDE RAILS UP X2. WILL ENDORSE TO ONCOMING SHIFT Addendum: 04/20/21 at 1927 by WATSON MOHAN RN MAGALY MS CLOSING NOTES
--- NOTE | 2021-04-20 19:26 | NUR ---
RN notes Pt is getting upper and lower samuel. extremity us at the bed side with
--- NOTE | 2021-04-20 19:30 | NUR ---
RN notes Changed wound vac with a new canister. output 750 ml.
[2021-04-20 20:00] VITALS: BP_SYST 124; BP_SYST 155; BP_DIAS 79; BP_DIAS 87
--- NOTE | 2021-04-20 22:05 | NUR ---
RN notes Pt is screaming and yelling requesting pain meds morphine. Informed and notified REGIONAL TRANSPORTATION MANAGER. REGIONAL TRANSPORTATION MANAGER ordered morphine 4 mg/ 2 ml/iv push/one time. Order carried out. Charge nurse is aware and informed.
--- NOTE | 2021-04-20 22:10 | NUR ---
[facility] Johnny to verify morphine/one time.
--- NOTE | 2021-04-20 22:20 | NUR ---
RN notes [facility] for second time to verify morphine/one time.
[2021-04-20] MEDS ORDERED: MORPHINE SULFATE INJ 4 MG/ML DISP.SYRIN IV ONE (22:30)
--- NOTE | 2021-04-20 22:36 | NUR ---
RN notes Unable to scan barcode for morphine 4 mg/iv push/one time. Inserted Manual barcode.
[2021-04-21] MEDS: MORPHINE SULFATE INJ 2 MG/ML DISP.SYRIN IV PRN ×6 (00:26→22:23)
[2021-04-21] MEDS: HYDROCODONE/APAP 5/325MG TABLET PO PRN ×5 (01:34→23:33)
[2021-04-21] MEDS: ONDANSETRON HCL/PF 4 MG/2 ML VIAL IVP PRN (01:34)
--- NOTE | 2021-04-21 01:34 | NUR ---
RN notes Pt's complaining of pain on L leg and thigh and requesting pain meds. Administered norco5/ 1 tab/po/prn as ordered for pain. safety precautions is maintained. will continue to monitor.
--- NOTE | 2021-04-21 01:34 | NUR ---
RN notes Pt is feeling nausea no vomiting and requesting meds. Administered zofran 4mg/iv push/prn for nausea. Will continue to monitor.
[2021-04-21] MEDS: LORAZEPAM INJ 2 MG/ML VIAL IV PRN ×4 (02:34→20:26)
--- NOTE | 2021-04-21 04:23 | NUR ---
RN notes Pt removed RIJ cath. Pt is alert and oriented with episode of confusion and agitated easily. Informed and notified MD. No new order received.
--- NOTE | 2021-04-21 06:30 | NUR ---
RN closing notes Pt is resting in bed comfortably. Pt is alert and orientedX4. Respiration is normal in room air. No SOB. No S/s of distress noted. VS is stable. Routine meds were given as ordered including pain meds for pain management. STEVEN midline is clean, intact. elizalde cath is intact and draining yellow urine. Wound vac is intact. Kept pt clean, dry and comfortable. All needs met and attended. Safety precautions is maintained. bed at low position, brakes locked, side rails upX3, bed alarm is on and call light is within reach. will endorse to am nurse for LEON.
[2021-04-21 07:19] LABS: BASOPHILS % (AUTO) 0.4 % (0.0-2.0); EOSINOPHILS % (AUTO) 3.5 % (0.0-6.0); HEMATOCRIT 27 % (39-51); HEMOGLOBIN 9.5 g/dL (13.5-17.5); LYMPHOCYTES # (AUTO) 1.2 K/uL (0.8-4.8); LYMPHOCYTES % (AUTO) 11.1 % (20.0-44.0); MEAN CORPUSCULAR HGB CONC 35 g/dl (31.0-36.0); MEAN CORPUSCULAR VOLUME 90 fL (80-96); MONOCYTES # (AUTO) 1.5 K/uL (0.1-1.30); NEUTROPHILS # (AUTO) 7.4 K/uL (1.8-8.9); PLATELET COUNT (AUTO) 199 K/uL (150-450); RED BLOOD CELL COUNT(AUTO) 3.01 MIL/uL (4.5-6.0); WHITE BLOOD COUNT (AUTO) 10.5 K/uL (4.3-11.0)
--- NOTE | 2021-04-21 07:20 | NUR ---
RN OPENING NOTE RECEIVED PATIENT IN BED. A/O X4. ABLE TO MAKE NEEDS KNOWN. ON ROOM AIR, TOLERATING WELL. NO SOB NOTED. IN NO APPARENT DISTRESS. DENIES ANY PAIN OR DISCOMFORT AT THIS TIME. IV ACCESS ON STEVEN MIDLINE, INTACT AND PATENT. MARC CATHETER IN PLACE, DRAINING YELLOW URINE. WOUND VAC IS PRESENT. R IJ CATH WAS REPORTED TO BE REMOVED BY THE PT, NO SIGNS OF BLEEDING. SAFETY MEASURES MAINTAINED. BED IN LOWEST POSITION, BRAKES LOCKED. SIDE RAILS UP X2. CALL LIGHT WITHIN REACH. WILL CONTINUE PLAN OF CARE.
[2021-04-21 07:54] LABS: CALCIUM, SERUM 7.3 mg/dL (8.5-10.1); MAGNESIUM 2.5 mg/dL (1.8-2.4); POTASSIUM 5.3 mmol/L (3.5-5.1)
[2021-04-21 08:00] VITALS: BP 160/98
[2021-04-21 08:00] LABS: CREATININE 9.6 mg/dL (0.6-1.3); PHOSPHORUS 8.7 mg/dL (2.5-4.9)
[2021-04-21] MEDS: CARVEDILOL 3.125 MG TABLET PO SCH ×2 (08:46→20:26)
[2021-04-21] MEDS: PANTOPRAZOLE 40 MG TABLET.DR PO SCH (08:46)
--- NOTE | 2021-04-21 08:49 | NUR ---
WOUND CARE FOLLOW UP: WOUND VAC TO LEFT BUTTOCK AND THIGH FUNCTIONING WELL AT 125mmHg CONTINUOUS SETTING. PT NOTED TO BE ANGRY AND IRRITABLE AT THIS TIME.
[2021-04-21] MEDS ORDERED: SODIUM POLYSTYRENE SULFONATE 15 G/60 ML BOTTLE PO ONE (15:00)
[2021-04-21 16:00] VITALS: BP 150/88
--- NOTE | 2021-04-21 19:02 | NUR ---
RN CLOSING NOTE PATIENT RESTING IN BED. A/O X4. ON ROOM AIR, TOLERATING WELL. NO SOB NOTED. IN NO APPARENT DISTRESS. IV ACCESS ON STEVEN MIDLINE, INTACT AND PATENT. MARC CATHETER IN PLACE, DRAINING YELLOW URINE, 500 CC OUTPUT. WOUND VAC SUCTION AT 125 MMHG. DUE MEDS GIVEN ORDERED. ALL NEEDS HAVE BEEN MET AND ATTENDED. SAFETY MEASURES MAINTAINED. BED IN LOWEST POSITION, BRAKES LOCKED. SIDE RAILS UP X2. CALL LIGHT WITHIN REACH. WILL ENDORSE CONTINUITY OF CARE TO INCOMING SHIFT.
--- NOTE | 2021-04-21 19:56 | NUR ---
MS RN OPENING NOTES RECEIVED PT IN BED, AWAKE, SISTER AT BEDSIDE. AOx4, ABLE TO MAKE NEEDS KNOWN. ON RA AND TOLERATING WELL. NO SOB NOTED. NO S/SX OF RESPIRATORY DISTRESS NOTED. IV ACCESS IN STEVEN MIDLINE. IV IS INTACT, PATENT AND FLUSHING WELL. SAFETY PRECAUTIONS IN PLACE: BED IN LOWEST, LOCKED POSITION, SIDERAILS UPx2,AND BRAKES ON. TABLE AND CALL LIGHT WITHIN REACH. WILL CONTINUE TO MONITOR.
--- NOTE | 2021-04-21 20:26 | NUR ---
ADMINISTERED ATIVAN FOR ANXIETY PER MD ORDER. VS WNL. WILL CONTINUE TO MONITOR.
[2021-04-21 20:37] VITALS: BP 151/93
--- NOTE | 2021-04-21 22:23 | NUR ---
ADMINISTERED MORPHINE FOR PAIN PER MD ORDER. VS WNL. WILL CONTINUE TO MONITOR.
--- NOTE | 2021-04-21 23:33 | NUR ---
ADMINISTERED NORCO FOR PAIN. WILL CONTINUE TO MONITOR.
[2021-04-22] MEDS ORDERED: KETOROLAC TROMETHAMINE INJ 30 MG/ML VIAL IV ONE (00:30)
--- NOTE | 2021-04-22 00:31 | NUR ---
SPOKE TO THAIS NELSON ABOUT UNRESOLVED PAIN. ORDER TORADOL 15 MG IV. ADMINISTERED. WILL CONTINUE TO MONITOR.
[2021-04-22] MEDS: LORAZEPAM INJ 2 MG/ML VIAL IV PRN ×3 (01:09→23:01)
--- NOTE | 2021-04-22 01:11 | NUR ---
ADMINISTERED MORPHINE FOR PAIN PER MD ORDER. VS WNL. WILL CONTINUE TO MONITOR.
--- NOTE | 2021-04-22 01:15 | NUR ---
ADMINISTERED ATIVAN NOT MORPHINE.
[2021-04-22] MEDS: MORPHINE SULFATE INJ 2 MG/ML DISP.SYRIN IV PRN ×5 (02:12→21:59)
--- NOTE | 2021-04-22 02:12 | NUR ---
ADMINISTERED MORPHINE PER MD ORDER FOR PAIN. VS WNL. WILL CONTINUE TO MONITOR.
--- NOTE | 2021-04-22 05:13 | NUR ---
ADMINISTERED ATIVAN PER MD ORDER. VS WNL. WILL CONTINUE TO MONITOR.
--- NOTE | 2021-04-22 06:43 | NUR ---
PT LEFT FLOOR FOR SURGICAL PROCEDURE. CONSENTS SIGNED. CHECKLIST DONE. PT KEPT NPO POST MIDNIGHT. Addendum: 04/22/21 at 0656 by DUDLEY LAW RN VITAL SIGNS STABLE.
[2021-04-22] MEDS ORDERED: GLYCOPYRROLATE 0.2 MG/ML VIAL ONE (06:45)
[2021-04-22] MEDS ORDERED: FENTANYL PF 100MCG/2ML AMPUL ONE ×2 (06:45→08:26)
[2021-04-22] MEDS ORDERED: ROCURONIUM BROMIDE 50 MG/5 ML ONE (06:46)
[2021-04-22] MEDS ORDERED: BUPIVACAINE 0.25% 75 MG/30 ML VIAL ONE (06:50)
[2021-04-22] MEDS ORDERED: ANESTHESIA TRAY IN PYXIS 1 EA TRAY MC ONE (06:50)
[2021-04-22] MEDS ORDERED: BUPIVACAINE MPF W/EPI 0.25% 30 ML VIAL ONE (06:50)
[2021-04-22 06:53] LABS: BASOPHILS # (AUTO) 0.1 K/uL (0.0-0.2); BASOPHILS % (AUTO) 0.6 % (0.0-2.0); EOSINOPHILS % (AUTO) 3.6 % (0.0-6.0); HEMATOCRIT 25 % (39-51); LYMPHOCYTES # (AUTO) 1.1 K/uL (0.8-4.8); LYMPHOCYTES % (AUTO) 10.7 % (20.0-44.0); MEAN CORPUSCULAR HGB CONC 36 g/dl (31.0-36.0); MEAN CORPUSCULAR VOLUME 90 fL (80-96); MONOCYTES # (AUTO) 1.2 K/uL (0.1-1.30); MONOCYTES % (AUTO) 12.2 % (2.0-12.0); NEUTROPHILS # (AUTO) 7.4 K/uL (1.8-8.9); NEUTROPHILS % (AUTO) 72.9 % (43.0-81.0); PLATELET COUNT (AUTO) 207 K/uL (150-450); RED BLOOD CELL COUNT(AUTO) 2.79 MIL/uL (4.5-6.0); WHITE BLOOD COUNT (AUTO) 10.1 K/uL (4.3-11.0)
--- NOTE | 2021-04-22 06:56 | NUR ---
WASTED ATDERIK WITH MAGALY VALENTINE.
[2021-04-22 07:02] LABS: MAGNESIUM 2.5 mg/dL (1.8-2.4)
--- NOTE | 2021-04-22 07:15 | NUR ---
RN NOTES PATIENT CURRENTLY IN SURGERY PER BENDING ROLL OPERATOR RN REPORT.
[2021-04-22] MEDS: PANTOPRAZOLE 40 MG TABLET.DR PO SCH (07:30)
[2021-04-22 08:23] LABS: CREATININE 11.4 mg/dL (0.6-1.3)
[2021-04-22 08:25] LABS: PHOSPHORUS 12.6 mg/dL (2.5-4.9)
[2021-04-22] MEDS: CARVEDILOL 3.125 MG TABLET PO SCH ×2 (09:00→21:59)
--- NOTE | 2021-04-22 09:23 | NUR ---
RN NOTES PATIENT RETURNED FROM SURGERY VIA GURNEY ACCOMPANIED BY 1 OR NURSE; NEW WOUND VACC NOTED RUNNING AT 125MMHG.
--- NOTE | 2021-04-22 09:30 | NUR ---
RN NOTES WOUND VACC CURRENTLY DRAINING SEROSANGUINEOUS DRAINAGE.
--- NOTE | 2021-04-22 10:47 | NUR ---
RN NOTES PATIENT SEEN BY EUNICE CRAMER.
[2021-04-22 12:07] LABS: HEPATITIS Be AB Negative (Negative)
--- NOTE | 2021-04-22 12:12 | NUR ---
RN NOTES PATIENT SIGNED CONSENT FOR TUNNELED CATHETER PLACEMENT TOMORROW. CONSENT FORMS PLACED IN PATIENT'S CHART.
[2021-04-22] MEDS: SEVELAMER CARBONATE 800 MG TABLET PO SCH ×2 (12:49→18:00)
--- NOTE | 2021-04-22 12:50 | NUR ---
RN NOTES DR. SHARIF AT BEDSIDE TO SEE PATIENT; INFORMED ABT PLAN OF CARE.
--- NOTE | 2021-04-22 14:38 | NUR ---
RN NOTES WOUND VACC CANISTER CHANGED; OBTAINED 500CC SEROSANGUINEOUS DRAINAGE. TOLERATED PROCEDURE WELL. NO LEAKS ON WOUND VACC.
[2021-04-22] MEDS: HYDROCODONE/APAP 5/325MG TABLET PO PRN ×2 (15:46→19:51)
--- NOTE | 2021-04-22 15:52 | NUR ---
RN NOTES PATIENT'S SISTER SPOKE W/ DR. ASH REGARDING GABAPENTIN MEDICATION FOR PAIN. FOLLOWED-UP W/ MD W/ ORDER NOTED AND CARRIED OUT.
--- NOTE | 2021-04-22 16:19 | NUR ---
RN NOTES SPOKE W/ MARV FROM PHARMACY; PER MARV, MAX RECOMMENDED DOSE OF GABAPENTIN IS 300MG DAILY AND IF POSSIBLE, START PATIENT ON 100MG QHS THEN TITRATE UP. INFORMED DR. ASH AND AGREED W/ RECOMMENDATION TO START PATIENT ON GABAPENTIN 100MG PO QHS, NOTED AND CARRIED OUT.
[2021-04-22 16:34] VITALS: BP 164/60
[2021-04-22] MEDS ORDERED: GABAPENTIN 300 MG CAPSULE PO SCH (17:00)
--- NOTE | 2021-04-22 18:52 | NUR ---
RN NOTES PATIENT RESTING IN BED, DOZING INTERMITTENTLY. A/O X4, ABLE TO MAKE NEEDS KNOWN. BREATHING EVEN AND UNLABORED, CONTINUES ON ROOM AIR. IV LINE INTACT AND PATENT. DUE MEDS GIVEN. PAIN MGT APPROPRIATE. REPOSITIONED IN BED FOR COMFORT TOLERATED. FOR SCHEDULED SURGERY TOMORROW, CONSENT FORM IN THE CHART. NPO POST MIDNIGHT. SAFETY MEASURES MAINTAINED. WILL ENDORSE TO FOREST FIRE EQUIPMENT OPERATOR RN FOR LEON.
--- NOTE | 2021-04-22 18:53 | NUR ---
RN NOTES WOUND VACC INTACT W/ CURRENT SETTINGS PRESCRIBED, STILL DRAINING SEROSANGUINEOUS DRAINAGE. NO ADVERSE CHANGE NOTED.
--- NOTE | 2021-04-22 19:10 | NUR ---
MS/RN OPENING NOTE RECEIVED PATIENT SLEEPING IN BED. ALERT AND ORIENTED X 4. ABLE TO MAKE NEEDS KNOWN. DENIES PAIN AT THIS TIME. CONTINUES ON ROOM AIR WITH NO S/SX OF RESPIRATORY DISTRESS NOTED. IV ACCESS TO RIGHT UPPER ARM MIDLINE #18G INTACT, PATENT AND SALINE LOCKED. CONTINUES ON IV ABX. CONTINUES ON WOUND VAC TO LEFT THIGH RUNNING AT 125MMHG. PATIENT TO BE NPO AFTER MIDNIGHT FOR PLANNED PROCEDURE IN AM. PATIENT AWARE AND AGREEABLE. CONSENT IN CHART. CALL LIGHT WITHIN REACH. ASPIRATION, FALL AND SAFETY PRECAUTIONS MAINTAINED. WILL CONTINUE TO MONITOR.
[2021-04-22 20:00] VITALS: BP 116/80
[2021-04-22] MEDS: GABAPENTIN 100 MG CAPSULE PO SCH (21:59)
[2021-04-23] MEDS: HYDROCODONE/APAP 5/325MG TABLET PO PRN ×2 (00:11→17:00)
[2021-04-23] MEDS: MORPHINE SULFATE INJ 2 MG/ML DISP.SYRIN IV PRN ×6 (02:10→23:48)
[2021-04-23] MEDS: LORAZEPAM INJ 2 MG/ML VIAL IV PRN ×4 (03:09→19:39)
--- NOTE | 2021-04-23 06:10 | NUR ---
MS/RN CLOSING NOTE PATIENT CURRENTLY SLEEPING IN BED. ALERT AND ORIENTED X 4. ABLE TO MAKE NEEDS KNOWN. DENIES PAIN AT THIS TIME. CONTINUES ON ROOM AIR WITH NO S/SX OF RESPIRATORY DISTRESS NOTED. IV ACCESS TO RIGHT UPPER ARM MIDLINE #18G INTACT, PATENT AND SALINE LOCKED. CONTINUES ON IV ABX. CONTINUES ON WOUND VAC TO LEFT THIGH RUNNING AT 125MMHG. PATIENT CONTINUES TO BE NPO FOR PROCEDURE. CALL LIGHT WITHIN REACH. ASPIRATION, FALL AND SAFETY PRECAUTIONS MAINTAINED. WILL ENDORSE PLAN OF CARE TO ONCOMING SHIFT.
[2021-04-23] MEDS: ONDANSETRON HCL/PF 4 MG/2 ML VIAL IVP PRN (06:30)
[2021-04-23 06:48] LABS: BASOPHILS % (AUTO) 0.2 % (0.0-2.0); EOSINOPHILS % (AUTO) 0.2 % (0.0-6.0); HEMATOCRIT 25 % (39-51); HEMOGLOBIN 8.6 g/dL (13.5-17.5); LYMPHOCYTES % (AUTO) 7.8 % (20.0-44.0); MEAN CORPUSCULAR HGB CONC 35 g/dl (31.0-36.0); MEAN CORPUSCULAR VOLUME 91 fL (80-96); MONOCYTES # (AUTO) 1.2 K/uL (0.1-1.30); MONOCYTES % (AUTO) 9.2 % (2.0-12.0); NEUTROPHILS # (AUTO) 10.6 K/uL (1.8-8.9); NEUTROPHILS % (AUTO) 82.6 % (43.0-81.0); PLATELET COUNT (AUTO) 307 K/uL (150-450); RED BLOOD CELL COUNT(AUTO) 2.71 MIL/uL (4.5-6.0); WHITE BLOOD COUNT (AUTO) 12.8 K/uL (4.3-11.0)
[2021-04-23] MEDS ORDERED: LIDOCAINE 1% INJ 50 ML MDV IJ ONE (07:01)
[2021-04-23] MEDS ORDERED: HEPARIN SODIUM, PORCINE 1,000 UNIT/ML VIAL ONE (07:01)
[2021-04-23] MEDS ORDERED: CLINDAMYCIN 900 MG/6 ML VIAL ONE (07:10)
--- NOTE | 2021-04-23 07:15 | NUR ---
MSRN OPENING NOTES RECEIVED PATIENT IN BED, AWAKE, ALERT AND ORIENTED X 4. ABLE TO MAKE NEEDS KNOWN. DENIES PAIN AT THIS TIME. CONTINUES ON ROOM AIR WITH NO S/SX OF RESPIRATORY DISTRESS NOTED. IV ACCESS TO RIGHT UPPER ARM MIDLINE #18G INTACT, PATENT, FLUSHES WELL AND SALINE LOCKED. NOTED WITH WOUND VAC TO LEFT THIGH RUNNING AT 125MMHG. PATIENT ON NPO SINCE MIDNIGHT FOR PLANNED PROCEDURE TODAY. CONSENT IN CHART. CALL LIGHT WITHIN REACH. ASPIRATION, FALL AND SAFETY PRECAUTIONS MAINTAINED. WILL CONTINUE TO MONITOR ACCORDINGLY.
[2021-04-23] MEDS: PANTOPRAZOLE 40 MG TABLET.DR PO SCH (07:30)
[2021-04-23 07:41] LABS: MAGNESIUM 2.5 mg/dL (1.8-2.4); POTASSIUM 5.2 mmol/L (3.5-5.1)
--- NOTE | 2021-04-23 07:45 | NUR ---
RN NOTES PATIENT WAS PICKED UP BY O.R STAFF. LEFT UNIT IN STABLE CONDITION.
[2021-04-23 07:46] LABS: CREATININE 12.5 mg/dL (0.6-1.3); PHOSPHORUS 11.1 mg/dL (2.5-4.9)
[2021-04-23 08:00] VITALS: BP 143/78
--- NOTE | 2021-04-23 09:05 | NUR ---
RN NOTES RECEIVED PATIENT FROM RECOVERY ROOM VIA BED, AWAKE, A&O X 4. ABLE TO MAKE NEEDS KNOWN. ON ROOM AIR, TOLERATING WELL. NOTED WITH HD CATH ON RIGHT UPPER CHEST WALL. WOUND VACC ON LEFT BUTTOCKS AND THIGH NOTED. SAFETY PRECAUTIONS IN PLACE BED ON LOWEST LOCKED POSITION. SIDE RAILS UP X 2, CALL LIGHT WITHIN EASY REACH. WILL CONTINUE TO MONITOR ACCORDINGLY.
[2021-04-23 09:15] VITALS: BP 143/78
[2021-04-23] MEDS: SEVELAMER CARBONATE 800 MG TABLET PO SCH ×3 (09:42→17:24)
[2021-04-23] MEDS: CARVEDILOL 3.125 MG TABLET PO SCH ×2 (09:42→21:01)
[2021-04-23] MEDS ORDERED: hydrALAZINE HCL 10 MG TABLET PO PRN (10:00)
[2021-04-23] MEDS: CLINDAMYCIN 600 MG in IV D5W 50 ML IV SCH ×3 (14:16→19:56)
--- NOTE | 2021-04-23 14:18 | NUR ---
RN NOTES PATIENT'S DIALYSIS IS ONGOING. WILL ADMINISTER CLINDAMYCIN POST DIALYSIS PER HD NURSE RECOMMENDATION.
[2021-04-23 16:00] VITALS: BP 169/93
--- NOTE | 2021-04-23 16:28 | NUR ---
RN NOTES BP OF 169/93. HYDRALAZINE GIVEN. PATIENT STILL ON DIALYSIS.
--- NOTE | 2021-04-23 17:05 | NUR ---
RN NOTES S/P DIALYSIS, 1L OUT. PATIENT ABLE TO TOLERATE PROCEDURE.
--- NOTE | 2021-04-23 18:49 | NUR ---
MS RN CLOSING NOTES PATIENT IN BED, AWAKE, ALERT AND ORIENTED X 4. ABLE TO MAKE NEEDS KNOWN. DENIES PAIN AT THIS TIME. CONTINUES ON ROOM AIR WITH NO S/SX OF RESPIRATORY DISTRESS NOTED. IV ACCESS TO RIGHT UPPER ARM MIDLINE #18G INTACT, PATENT, FLUSHES WELL AND SALINE LOCKED. PERMA CATH ON RIGHT UPPER CHEST WALL NOTED. NOTED WITH WOUND VAC ON LEFT THIGH AND BUTTOCKS RUNNING AT 125MMHG. NOTED WITH MARC CATHETER CONNECTED TO URINE BAG DRAINING CLEAR YELLOW URINE. CALL LIGHT WITHIN REACH. ASPIRATION, FALL AND SAFETY PRECAUTIONS MAINTAINED. ALL NEEDS ATTENDED AND MET, DUE MEDS GIVEN ORDERED. WILL ENDORSE TO ONCOMING SHIFT FOR LEON.
[2021-04-23 20:00] VITALS: BP 142/76
[2021-04-23 20:32] VITALS: BP 142/76
--- NOTE | 2021-04-23 20:43 | NUR ---
IN BED ALERT AND ORIENTATED X4 ASKING FOR ATIVAN AND PAIN MEDICATION DT LOWER BACK PAIN. FEMALE FRIEND AT HIS BEDSIDE VISITING MIDLINE RIGHT UPPER ARM TKO NS SOLUTION WOUND VAC WORKING VAS CATH RIGHT CHEST WALL DRESSING CDI SAMANTA ARMS SWOLLEN WARM TO TOUCH BITH FEET SWOLLEN ELEVATED ON A PILLOW TO KEEP HEELS OFF THE BED
[2021-04-23] MEDS: GABAPENTIN 100 MG CAPSULE PO SCH (21:47)
[2021-04-24] VITALS (8 sets, daily range): BP systolic 134–144; BP diastolic 69–81
[2021-04-24] MEDS: LORAZEPAM INJ 2 MG/ML VIAL IV PRN (01:15)
[2021-04-24] MEDS: MORPHINE SULFATE INJ 2 MG/ML DISP.SYRIN IV PRN ×5 (03:54→22:43)
--- NOTE | 2021-04-24 04:03 | NUR ---
sleeping at this time slept off and on through the night medicated for pain #3 this 12 hours Morphne 2 mg IVP Medicated for anxity X3 this 12 hours with Ativan needs encouragement to help self and turn and pull self up wound vac workinf serosabg drainage elizalde cath drainage clear yellow taped to the thigh feet warm swollen 3 + heels kept off the bed Addendum: 04/24/21 at 0554 by GEORGIA ARREDONDO RN medicated for anxiety X2 last dose 01:15 elizalde output 1400 ml
[2021-04-24 07:01] LABS: MAGNESIUM 2.2 mg/dL (1.8-2.4); POTASSIUM 4.9 mmol/L (3.5-5.1)
[2021-04-24 07:03] LABS: CREATININE 9.5 mg/dL (0.6-1.3)
[2021-04-24 07:06] LABS: PHOSPHORUS 8.5 mg/dL (2.5-4.9)
--- NOTE | 2021-04-24 07:30 | NUR ---
RN OPENING NOTES. PT IN BED AWAKE, A&OX4. NO S/S OF RESPIRATORY DISTRESS OR DISCOMFORT AT THIS TIME. LEFT THIGH AND BUTTOCK WOUND WITH WOUND VAC IN PLACE RUNNING AT 125MMHG. MARC CATHETER IN INTACT AND PATENT WITH CLEAR YELLOW URINE. RIGHT UPPER ARM MIDLINE WITH NS RUNNING @ 10ML/HR TKO INTACT AND PATENT. SAFETY PRECAUTIONS IN PLACE: BED LOCKED & IN LOWEST POSITION, CALL LIGHT WITHIN REACH. WILL CONTINUE TO MONITOR PT AT THIS TIME.
[2021-04-24] MEDS: SEVELAMER CARBONATE 800 MG TABLET PO SCH ×3 (08:18→17:29)
[2021-04-24] MEDS: PANTOPRAZOLE 40 MG TABLET.DR PO SCH (08:18)
[2021-04-24] MEDS: CARVEDILOL 3.125 MG TABLET PO SCH ×2 (08:19→20:31)
[2021-04-24 08:40] LABS: BASOPHILS # (AUTO) 0.1 K/uL (0.0-0.2); BASOPHILS % (AUTO) 0.5 % (0.0-2.0); EOSINOPHILS % (AUTO) 1.6 % (0.0-6.0); LYMPHOCYTES # (AUTO) 0.8 K/uL (0.8-4.8); LYMPHOCYTES % (AUTO) 8.2 % (20.0-44.0); MEAN CORPUSCULAR HGB CONC 35 g/dl (31.0-36.0); MEAN CORPUSCULAR VOLUME 91 fL (80-96); MONOCYTES # (AUTO) 1.2 K/uL (0.1-1.30); MONOCYTES % (AUTO) 11.9 % (2.0-12.0); NEUTROPHILS # (AUTO) 7.9 K/uL (1.8-8.9); NEUTROPHILS % (AUTO) 77.8 % (43.0-81.0); PLATELET COUNT (AUTO) 265 K/uL (150-450); RED BLOOD CELL COUNT(AUTO) 2.15 MIL/uL (4.5-6.0); WHITE BLOOD COUNT (AUTO) 10.1 K/uL (4.3-11.0)
[2021-04-24 08:53] LABS: HEMATOCRIT 20 % (39-51); HEMOGLOBIN 6.8 g/dL (13.5-17.5)
[2021-04-24] MEDS: HYDROCODONE/APAP 5/325MG TABLET PO PRN ×3 (09:59→20:31)
[2021-04-24 11:20] LABS: EOSINOPHILS % (MANUAL) 2 % (0-4); LYMPHOCYTES % (MANUAL) 10 % (16-48); MONOCYTES % (MANUAL) 10 % (0-11.0); NEUTROPHILS % (MANUAL) 78 (42-76)
[2021-04-24] MEDS: ACETAMINOPHEN 325 MG TABLET PO PRN (12:34)
--- NOTE | 2021-04-24 13:46 | NUR ---
RN NOTE BLOOD HAS BEEN VERIFIED BY 2 RN's. STARTED BLOOD TRANSFUSION AT 1400, INITIATED AT 60 ML/HR. VS BP 135/69 OH 71 RR 17 T 98.7 AFTER 15 MINS, NO SIGNS OF HEMOLYTIC TRANSFUSION REACTIONS, INCREASED FLOW RATE TO 100 ML/HR. WILL CONTINUE TO MONITOR.
--- NOTE | 2021-04-24 17:00 | NUR ---
RN NOTE BLOOD TRANSFUSION WAS DONE. VS BP 136/80 NV 69 RR 18 T 97.9. NO TRANSFUSION REACTIONS NOTED.
--- NOTE | 2021-04-24 18:22 | NUR ---
RN CLOSING NOTE PT IN BED AWAKE, WITH SISTER AT BEDSIDE. PATIENT PARTICIPATED IN SELF CARE TODAY WITH ALL NEEDS MET. PAIN MANAGED WITH MORPHINE 4MG Q4H AND HYDROCODONE 5/325MG 1TAB Q4H. NO S/S OF RESPIRATORY DISTRESS OR DISCOMFORT AT THIS TIME. WILL ENDORSE TO THE LUNCH COOK NURSE FOR LEON.
--- NOTE | 2021-04-24 19:20 | NUR ---
RN OPENING NOTES PT AWAKE, A/OX4. RESPIRATIONS EVEN/UNLABORED. DENIES SOB. IV SITE: STEVEN MIDLINE INTACT/PATENT/FLUSHES WELL. HD ACCESS ON RCW PERMA-CATH IN PLACE WITH DRESSING C/D/I. WITH L-THIGH AND BUTTOCK WOUND CONNECTED TO WOUND VAC RUNNING @125MMHG. F/C IN PLACE AND DRAINING WELL. PT IN NO ACUTE DISTRESS. PT WITH SISTERS AT BEDSIDE VISITING. SAFETY MEASURES IN PLACE, BED IN LOWEST LOCKED POSITION, S/R UPX2, CALL LIGHT WITHIN REACH. WILL CONT TO MONITOR.
[2021-04-24] MEDS: GABAPENTIN 100 MG CAPSULE PO SCH (22:42)
[2021-04-25] MEDS: LORAZEPAM INJ 2 MG/ML VIAL IV PRN ×4 (01:24→23:05)
[2021-04-25] MEDS: MORPHINE SULFATE INJ 2 MG/ML DISP.SYRIN IV PRN ×4 (05:31→21:20)
--- NOTE | 2021-04-25 06:54 | NUR ---
RN CLOSING NOTES PT RESTING IN BED, EASILY AROUSABLE TO STIMULI. DENIES SOB. IV SITE: STEVEN MIDLINE INTACT/PATENT/FLUSHES WELL. HD ACCESS ON RCW PERMA-CATH IN PLACE WITH DRESSING C/D/I. WOUND VAC INTACT RUNNING @125MMHG. F/C IN PLACE, DRAINING CLEAR YELLOW URINE, OUTPUT 1900ML THIS SHIFT. NO ACUTE EVENTS DURING THE NIGHT. SAFETY MEASURES MAINTAINED. ALL NEEDS ATTENDED TO.
--- NOTE | 2021-04-25 07:50 | NUR ---
RN OPENING NOTES PATIENT IN BED RESTING, AWAKE. A/O X4. NO S/S OF PAIN NOTED AT THIS TIME. ON ROOM AIR, NO DISTRESS OR SHORTNESS OF BREATH NOTED. IV ON right upper arm midline, right upper chest perm cath. FALL AND SAFETY MEASURES IN PLACE, BED ALARM ON, BED IN LOW AND LOCK POSITION, CALL LIGHT AND TABLE WITHIN EASY REACH, SIDE RAILS UP X2. WILL CONTINUE TO MONITOR.
[2021-04-25] MEDS: HYDROCODONE/APAP 5/325MG TABLET PO PRN ×4 (07:52→16:28)
[2021-04-25 08:00] VITALS: BP 145/83
[2021-04-25] MEDS: CARVEDILOL 3.125 MG TABLET PO SCH ×2 (08:07→21:19)
[2021-04-25] MEDS: PANTOPRAZOLE 40 MG TABLET.DR PO SCH (08:07)
[2021-04-25] MEDS: SEVELAMER CARBONATE 800 MG TABLET PO SCH ×3 (08:09→18:22)
[2021-04-25 15:50] VITALS: BP 142/69
[2021-04-25 16:17] LABS: BASOPHILS % (AUTO) 0.6 % (0.0-2.0); EOSINOPHILS % (AUTO) 0.5 % (0.0-6.0); HEMATOCRIT 21 % (39-51); HEMOGLOBIN 7.1 g/dL (13.5-17.5); LYMPHOCYTES # (AUTO) 0.4 K/uL (0.8-4.8); LYMPHOCYTES % (AUTO) 5.6 % (20.0-44.0); MEAN CORPUSCULAR HGB CONC 34 g/dl (31.0-36.0); MEAN CORPUSCULAR VOLUME 89 fL (80-96); MONOCYTES # (AUTO) 0.9 K/uL (0.1-1.30); MONOCYTES % (AUTO) 11.2 % (2.0-12.0); NEUTROPHILS # (AUTO) 6.5 K/uL (1.8-8.9); NEUTROPHILS % (AUTO) 82.1 % (43.0-81.0); PLATELET COUNT (AUTO) 271 K/uL (150-450); RED BLOOD CELL COUNT(AUTO) 2.34 MIL/uL (4.5-6.0); WHITE BLOOD COUNT (AUTO) 7.9 K/uL (4.3-11.0)
[2021-04-25 16:30] LABS: CALCIUM, SERUM 7.1 mg/dL (8.5-10.1); CREATININE 6.7 mg/dL (0.6-1.3); MAGNESIUM 1.9 mg/dL (1.8-2.4); PHOSPHORUS 5.3 mg/dL (2.5-4.9); POTASSIUM 4.4 mmol/L (3.5-5.1)
[2021-04-25] MEDS: MAGNESIUM HYDROXIDE 30 ML UDC PO PRN ×2 (16:35→21:18)
--- NOTE | 2021-04-25 19:22 | NUR ---
MS RN OPENING NOTE PATIENT WAS RECEIVED ASLEEP IN BED. PATIENT WAS REPORTED TO BE A/OX4, BUT WILL VERIFY/MONITOR PATIENT I AM ABLE TO INTERACT WITH HIM; OTHERWISE, WILL CONTINUE TO MONITOR PATIENT. NO S/S OF DISTRESS, BREATHING SYMMETRICAL. STEVEN MID & RU CHEST PERMA CATH (FOR HD) IN PLACE, BUT NO FLUIDS OR TREATMENTS UNDERGOING CURRENTLY. SAFETY MEASURES IN PLACE: BED AT LOWEST POSITION, RAILS UP X2, CALL ERICKSON WITHIN REACH.
--- NOTE | 2021-04-25 19:25 | NUR ---
RN CLOSING NOTES PATIENT IN BED RESTING, AWAKE. A/O X4. NO S/S OF PAIN NOTED AT THIS TIME. ON ROOM AIR, NO DISTRESS OR SHORTNESS OF BREATH NOTED. IV ON RIGHT UPPER ARM MIDLINE, RIGHT UPPER CHEST PERM CATH. FALL AND SAFETY MEASURES IN PLACE, BED ALARM ON, BED IN LOW AND LOCK POSITION, CALL LIGHT AND TABLE WITHIN EASY REACH, SIDE RAILS UP X2. WILL ENDORSE TO TEAM AUTOMOBILE ASSEMBLER
[2021-04-25 20:00] VITALS: BP 142/79
[2021-04-25] MEDS: GABAPENTIN 100 MG CAPSULE PO SCH (21:19)
[2021-04-25] MEDS ORDERED: NA PHOS,M-B/NA PHOS,DI-BA 1 EA ENEMA RC PRN (21:30)
[2021-04-26] MEDS: MORPHINE SULFATE INJ 2 MG/ML DISP.SYRIN IV PRN ×5 (01:46→18:48)
--- NOTE | 2021-04-26 06:10 | NUR ---
MS RN NOTE UNABLE TO OBTAIN DAILY WEIGHT FOR TODAY THE BED IS MALFUNCTIONING. CHARGE NOTIFIED.
--- NOTE | 2021-04-26 06:25 | NUR ---
MS RN CLOSING NOTE PATIENT IS AWAKE IN BED. A/OX4. NO S/S OF DISTRESS, BREATHING SYMMETRICAL; STEVEN MIDLINE PATENT. PAIN MANAGED BY MD ORDER. SAFETY MEASURES IN PLACE: BED AT LOWEST POSITION, RAILS UP X2, CALL ERICKSON WITHIN REACH. WILL ENDORSE TO NEXT SHIFT FOR LEON.
--- NOTE | 2021-04-26 07:30 | NUR ---
MS RN OPENING NOTES PATIENT IN BED ASLEEP, EASY TO AROUSE. ALERT AND ORIENTED X 4 . NO S/SX OF DISTRESS NOTED. BREATHING IS EVEN AND UNLABORED. IV ACCESS ON STEVEN MIDLINE INTACT AND PATENT. NO C/O PAIN OR DISCOMFORT. SKIN WARM AND DRY TO TOUCH. HD ACCESS ON RCW PERMA-CATH IN PLACE WITH DRESSING C/D/I. WITH L-THIGH AND BUTTOCK WOUND CONNECTED TO WOUND VAC RUNNING @125MMHG. MARC CATHETER IN PLACE, DRAINING WELL. ALL SAFETY MEASURE IN PLACE. BOTH SIDE RAILS UP. BED IN LOW POSITION AND LOCKED. CALL LIGHT WITH IN REACH. WILL CONTINUE TO MONITOR THROUGHOUT SHIFT.
[2021-04-26] MEDS: PANTOPRAZOLE 40 MG TABLET.DR PO SCH (08:15)
[2021-04-26] MEDS: SEVELAMER CARBONATE 800 MG TABLET PO SCH ×3 (08:15→17:36)
[2021-04-26] MEDS: CARVEDILOL 3.125 MG TABLET PO SCH ×2 (08:16→21:42)
[2021-04-26] MEDS: ACETAMINOPHEN 325 MG TABLET PO PRN (08:20)
[2021-04-26] MEDS: LORAZEPAM INJ 2 MG/ML VIAL IV PRN ×2 (17:04→21:43)
--- NOTE | 2021-04-26 19:03 | NUR ---
MS RN CLOSING NOTES PATIENT IN BED, RESTING COMFORTABLY. NO S/SX OF DISTRESS NOTED. BREATHING IS EVEN AND UNLABORED. IV ACCESS ON STEVEN MIDLINE INTACT AND PATENT. SKIN WARM AND DRY TO TOUCH. HD ACCESS ON RCW PERMA-CATH IN PLACE WITH DRESSING C/D/I. WITH L-THIGH AND BUTTOCK WOUND CONNECTED TO WOUND VAC RUNNING @125MMHG. MARC CATHETER IN PLACE, DRAINING WELL. ALL NEEDS MET THROUGHOUT SHIFT. NO SIGNIFICANT CHANGE IN CONDITION DURING SHIFT. ALL SAFETY MEASURES MAINTAINED BOTH SIDE RAILS UP. BED IN LOW POSITION AND LOCKED. CALL LIGHT WITH IN REACH. WILL ENDORSE CONTINUITY OF CARE TO ONCOMING SHIFT.
--- NOTE | 2021-04-26 19:15 | NUR ---
MS RN OPENING NOTE PATIENT RECEIVED IN BED ASLEEP. PATIENT SHOWS NO S/S OF DISTRESS, BREATHING SYMMETRICAL. NENITA MIDLINE; RU CHEST PERM CATH; NO IVF AT THIS TIME. SAFETY MEASURES IN PLACE: BED AT LOWEST POSITION, RAILS UP X2, CALL ERICKSON WITHIN REACH. WILL CONTINUE TO FOLLOW PATIENT THROUGHOUT SHIFT.
[2021-04-26 20:00] VITALS: BP 112/77
[2021-04-26] MEDS: GABAPENTIN 100 MG CAPSULE PO SCH (21:42)
[2021-04-26] MEDS: MORPHINE SULFATE INJ 4 MG/ML DISP.SYRIN IV PRN (23:14)
[2021-04-27] VITALS (9 sets, daily range): BP systolic 118–138; BP diastolic 57–79
[2021-04-27] MEDS: LORAZEPAM INJ 2 MG/ML VIAL IV PRN ×3 (02:40→21:16)
[2021-04-27] MEDS: MORPHINE SULFATE INJ 4 MG/ML DISP.SYRIN IV PRN ×5 (06:19→23:50)
--- NOTE | 2021-04-27 06:30 | NUR ---
MS RN NOTE BED SCALE MALFUNCTIONING. UNABLE TO GET WEIGHT OF PATIENT.
--- NOTE | 2021-04-27 06:31 | NUR ---
MS RN CLOSING NOTE PATIENT ASLEEP IN BED. A/OX4. NO S/S OF DISTRESS, BREATHING SYMMETRICAL. SAFETY MEASURES IN PLACE. BED AT LOWEST POSITION, RAILS UP X2, CALL ERICKSON WITHIN REACH. WILL ENDORSE TO NEXT SHIFT FOR LEON.
--- NOTE | 2021-04-27 07:00 | NUR ---
Patient refused blood draw this morning.
--- NOTE | 2021-04-27 07:24 | NUR ---
MS RN NOTE PATIENT REFUSED MORNING BLOOD DRAW. ENDORSED TO NEXT SHIFT NURSE.
[2021-04-27] MEDS: PANTOPRAZOLE 40 MG TABLET.DR PO SCH (07:38)
[2021-04-27] MEDS: SEVELAMER CARBONATE 800 MG TABLET PO SCH ×3 (07:38→17:11)
--- NOTE | 2021-04-27 07:45 | NUR ---
RN note Patient received in bed, AO x 4, able to responds all stimuli. Skin is warm to touch, keep clean/dry, woud vac for left hip and buttock. Respiratory even and unlabored on room air, no SOB observed. Call light within reach, kept lower bed position for safety. Will continue to monitor.
--- NOTE | 2021-04-27 08:14 | NUR ---
Patient is on wound vac, changed canister. 1000ml out put.
--- NOTE | 2021-04-27 08:18 | NUR ---
WOUND VAC CANISTER CHANGED WITH 1000cc RED DRAINAGE. VAC FUNCTIONING WELL TO LEFT BUTTOCK AND THIGH WOUNDS AT 125mmHg CONTINUOUS SETTING. PT ABLE TO REPOSITION HIMSELF IN BED AND IS CONTINENT.
[2021-04-27] MEDS: CARVEDILOL 3.125 MG TABLET PO SCH ×2 (09:41→21:16)
[2021-04-27 09:42] LABS: BASOPHILS # (AUTO) 0.1 K/uL (0.0-0.2); BASOPHILS % (AUTO) 0.8 % (0.0-2.0); EOSINOPHILS % (AUTO) 1.1 % (0.0-6.0); HEMOGLOBIN 7.1 g/dL (13.5-17.5); LYMPHOCYTES % (AUTO) 11.2 % (20.0-44.0); MEAN CORPUSCULAR HGB CONC 35 g/dl (31.0-36.0); MEAN CORPUSCULAR VOLUME 90 fL (80-96); MONOCYTES % (AUTO) 12.1 % (2.0-12.0); NEUTROPHILS # (AUTO) 6.4 K/uL (1.8-8.9); NEUTROPHILS % (AUTO) 74.8 % (43.0-81.0); PLATELET COUNT (AUTO) 306 K/uL (150-450); RED BLOOD CELL COUNT(AUTO) 2.26 MIL/uL (4.5-6.0); WHITE BLOOD COUNT (AUTO) 8.6 K/uL (4.3-11.0)
[2021-04-27 09:48] LABS: HEMATOCRIT 20 % (39-51)
[2021-04-27 10:12] LABS: ALBUMIN 2.1 g/dL (3.4-5.0); CREATININE 6.1 mg/dL (0.6-1.3); MAGNESIUM 2.3 mg/dL (1.8-2.4); PHOSPHORUS 4.8 mg/dL (2.5-4.9); TOTAL PROTEIN, SERUM 4.8 g/dL (6.4-8.2)
--- NOTE | 2021-04-27 10:19 | NUR ---
Patient hgb 7.1 and Htc 20 this morning and received order 1 unit RBC and cbc after transfusion. Noted and carry out.
[2021-04-27 10:28] LABS: BILIRUBIN,TOTAL 0.4 mg/dL (0.2-1.0)
[2021-04-27 11:44] LABS: BASOPHILS # (AUTO) 0.1 K/uL (0.0-0.2); EOSINOPHILS % (AUTO) 1.4 % (0.0-6.0); LYMPHOCYTES # (AUTO) 0.8 K/uL (0.8-4.8); MEAN CORPUSCULAR HGB CONC 35 g/dl (31.0-36.0); MEAN CORPUSCULAR VOLUME 91 fL (80-96); MONOCYTES # (AUTO) 1.3 K/uL (0.1-1.30); MONOCYTES % (AUTO) 15.2 % (2.0-12.0); NEUTROPHILS # (AUTO) 6.2 K/uL (1.8-8.9); NEUTROPHILS % (AUTO) 72.4 % (43.0-81.0); PLATELET COUNT (AUTO) 290 K/uL (150-450); RED BLOOD CELL COUNT(AUTO) 2.21 MIL/uL (4.5-6.0); WHITE BLOOD COUNT (AUTO) 8.5 K/uL (4.3-11.0)
--- NOTE | 2021-04-27 12:00 | NUR ---
WOUND CARE: WOUND VAC DRESSING CHANGED PER DR ASH ORDER. LEFT BUTTOCK WOUND MEASURES 18CM X 5CM X 4CM AND LEFT THIGH WOUND MEASURES 16CM X 6.5CM X 0.1CM. BOTH WOUNDS ARE RED IN COLOR WITH SOME FASCIA NOTED ON THIGH WOUND. SEROSANGUINOUS DRAINAGE NOTED, NO ODOR. SKIN PREP AND VAC DRAPE APPLIED TO PERIWOUND AREAS, GRANUFOAM TO WOUNDS (ONE PIECE TO THIGH AND TWO PIECES TO BUTTOCK WOUND). Y CONNECTOR USED. PT TOLERATED WELL. VAC AT 125mmHg CONTINUOUS SETTING. DR CARLTON NOTIFIED OF DRESSING CHANGE AND THAT WOUND PHOTOS WERE TAKEN. WILL FOLLOW. Addendum: 04/28/21 at 0923 by DELFIN LOCO WNDNU PLAN TO CHANGE VAC DRESSING TUESDAY DISCUSSED WITH DR ASH.
[2021-04-27 12:05] LABS: HEMATOCRIT 20 % (39-51); HEMOGLOBIN 6.9 g/dL (13.5-17.5)
--- NOTE | 2021-04-27 12:06 | NUR ---
Received Lab. result again that Hgb 6.9 and Htc 20. Patient received new order: RBC x one unit, and waiting rbc from blood bank.
[2021-04-27] MEDS: ACETAMINOPHEN 325 MG TABLET PO PRN (17:11)
--- NOTE | 2021-04-27 17:27 | NUR ---
MS RN NOTES- BLOOD TRANSFUSION Pt CURRENTLY RECEIVING BLOOD TRANSFUSION. TOLERATING WELL. BREATHING IS EVEN AND UNLABORED ON ROOM AIR. LATEST BLOOD PRESSURE IS 138/79. HEART RATE OF 81 BPM, AND TEMP OF 97.8. NO COMPLAINTS OF PAIN OR SIGNS OF DISTRESS AT THIS TIME. WILL CONTINUE TO MONITOR.
--- NOTE | 2021-04-27 18:30 | NUR ---
MS RN CLOSING NOTES Pt IS RESTING IN BED, A/OX3. SISTER IS AT BEDSIDE. Pt IS BREATHING EVENLY AND UNLABORED ON ROOM AIR. NO COMPLAINTS OF PAIN MADE AT THIS TIME, NO SIGNS OF DISTRESS NOTED. Pt IS CURRENTLY RECEIVING A BLOOD TRANSFUSION AND TOLERATING WELL. TOTAL OUTPUT FOR F/C IS 4000mL. SAFETY MEASURES ARE IN PLACE: BED IS LOCKED AND IN LOWEST POSITION. SIDE RAILS UP X2. CALL LIGHT AND BEDSIDE TABLE ARE WITHIN REACH. WILL ENDORSE TO ONCOMING SHIFT.
--- NOTE | 2021-04-27 19:30 | NUR ---
MS MAGALY OPENING NOTES RECEIVED PT IN BED, AWAKE, SISTER AT BEDSIDE. AOx3, ABLE TO MAKE NEEDS KNOWN. ON RA AND TOLERATING WELL. NO SOB NOTED. NO S/SX OF RESPIRATORY DISTRESS NOTED. MARC CATHETER DRAINING CLEAR, YELLOW URINE. IV ACCESS IN NENITA MIDLINE AND PERMACATHETER. IV IS INTACT, PATENT, AND FLUSHING WELL. WOUND VAC DRAINING SEROSANGUINEOUS DRAINAGE CURRENTLY AT 100 ML. SAFETY PRECAUTIONS IN PLACE: BED IN LOWEST, LOCKED POSITION, SIDERAILS UPx2, AND BRAKES ON. TABLE AND CALL LIGHT WITHIN REACH. WILL CONTINUE TO MONITOR. Addendum: 04/27/21 at 1938 by DUDLEY LAW RN BLOOD TRANSFUSION RUNNING. PT DENIES SOB OR ITCHINESS. WILL CONTINUE TO MONITOR.
--- NOTE | 2021-04-27 19:34 | NUR ---
ADMINISTERED MORPHINE PER MD ORDER. VS WNL. WILL CONTINUE TO MONITOR.
--- NOTE | 2021-04-27 20:52 | NUR ---
ENDED BLOOD TRANSFUSION. PT DENIES SOB OR ITCHINESS. WILL CONTINUE TO MONITOR.
[2021-04-27] MEDS: GABAPENTIN 100 MG CAPSULE PO SCH (21:15)
--- NOTE | 2021-04-27 21:16 | NUR ---
ADMINISTERED ATIVAN PER MD ORDER. VS WNL. WILL CONTINUE TO MONITOR.
[2021-04-27 22:49] LABS: HEMOGLOBIN 7.3 g/dL (13.5-17.5)
--- NOTE | 2021-04-27 23:50 | NUR ---
ADMINISTERED MORPHINE PER MD ORDER. VS WNL. WILL CONTINUE TO MONITOR.
[2021-04-28] MEDS: MORPHINE SULFATE INJ 4 MG/ML DISP.SYRIN IV PRN ×4 (03:59→20:01)
--- NOTE | 2021-04-28 03:59 | NUR ---
ADMINISTERED MORPHINE PER MD ORDER. VS WNL. WILL CONTINUE TO MONITOR.
[2021-04-28 04:16] LABS: BASOPHILS # (AUTO) 0.1 K/uL (0.0-0.2); BASOPHILS % (AUTO) 0.9 % (0.0-2.0); EOSINOPHILS % (AUTO) 2.4 % (0.0-6.0); HEMATOCRIT 22 % (39-51); HEMOGLOBIN 7.5 g/dL (13.5-17.5); LYMPHOCYTES % (AUTO) 13.5 % (20.0-44.0); MEAN CORPUSCULAR HGB CONC 35 g/dl (31.0-36.0); MEAN CORPUSCULAR VOLUME 89 fL (80-96); MONOCYTES # (AUTO) 1.1 K/uL (0.1-1.30); NEUTROPHILS % (AUTO) 68.2 % (43.0-81.0); PLATELET COUNT (AUTO) 303 K/uL (150-450); RED BLOOD CELL COUNT(AUTO) 2.43 MIL/uL (4.5-6.0); WHITE BLOOD COUNT (AUTO) 7.4 K/uL (4.3-11.0)
[2021-04-28 04:31] LABS: CALCIUM, SERUM 7.5 mg/dL (8.5-10.1); CREATININE 4.8 mg/dL (0.6-1.3); MAGNESIUM 2.1 mg/dL (1.8-2.4); PHOSPHORUS 4.2 mg/dL (2.5-4.9); POTASSIUM 3.9 mmol/L (3.5-5.1)
[2021-04-28] MEDS: LORAZEPAM INJ 2 MG/ML VIAL IV PRN ×4 (05:51→22:07)
--- NOTE | 2021-04-28 05:51 | NUR ---
ADMINISTERED ATIVAN PER MD ORDER. VS WNL. WILL CONTINUE TO MONITOR.
--- NOTE | 2021-04-28 07:03 | NUR ---
MS RN CLOSING NOTES PT IN BED, AWAKE. AOx3-4, WITH PERIODS OF CONFUSION. ABLE TO MAKE NEEDS KNOWN. ON RA AND TOLERATING WELL. NO SOB NOTED. NO S/SX OF RESPIRATORY DISTRESS NOTED. MARC CATHETER DRAINING CLEAR, YELLOW URINE - 5,300 ML. IV ACCESS IN NENITA MIDLINE AND PERMACATHETER. IV IS INTACT, PATENT, AND FLUSHING WELL. WOUND VAC DRAINING SEROSANGUINEOUS DRAINAGE CURRENTLY AT 300 ML, DRAINED 150 ML THIS SHIFT. TREATED PAIN THROUGHOUT SHIFT. ALL NEEDS MET. PT KEPT CLEAN AND DRY. SAFETY PRECAUTIONS IN PLACE: BED IN LOWEST, LOCKED POSITION, SIDERAILS UPx2, AND BRAKES ON. TABLE AND CALL LIGHT WITHIN REACH. WILL ENDORSE TO ONCOMING SHIFT FOR LEON.
--- NOTE | 2021-04-28 07:55 | NUR ---
MS/RN OPENING NOTES RECEIVED PT IN BED, AWAKE. AOx3-4, WITH PERIODS OF CONFUSION. ABLE TO MAKE NEEDS KNOWN. ON ROOM AIR AND TOLERATING WELL. NO SOB NOTED. NO S/SX OF RESPIRATORY DISTRESS NOTED. MARC CATHETER DRAINING CLEAR, YELLOW URINE. IV ACCESS IN L UPPER ARM MIDLINE AND PERMACATHETER. IV IS INTACT, PATENT, AND FLUSHING WELL. WOUND VAC DRAINING SEROSANGUINEOUS DRAIN. SAFETY PRECAUTIONS IN PLACE: BED IN LOWEST, LOCKED POSITION, SIDE RAILS UPx2, AND BRAKES ON. TABLE AND CALL LIGHT WITHIN REACH. WILL CONTINUE TO MONITOR PATIENT.
[2021-04-28 08:00] VITALS: BP 139/76
[2021-04-28] MEDS: PANTOPRAZOLE 40 MG TABLET.DR PO SCH (08:20)
[2021-04-28] MEDS: SEVELAMER CARBONATE 800 MG TABLET PO SCH ×2 (08:20→12:12)
[2021-04-28] MEDS: CARVEDILOL 3.125 MG TABLET PO SCH ×2 (08:21→20:00)
--- NOTE | 2021-04-28 09:19 | NUR ---
WOUND CARE: [employer] WOUND VAC TO LEFT GLUTEAL AND THIGH WOUNDS FUNCTIONING WELL AT 125mmHg CONTINUOUS SETTING WITH SMALL AMOUNT (APPROX 50cc) PINK/RED DRAINAGE IN CANISTER. LEFT LEG AND FOOT NOTED TO BE EDEMATOUS. DR ASH IN TO EXAMINE PT. LEG ELEVATED. PT ENCOURAGED TO TAKE HIS NEPRO. PT COMPLIED. RECOMMENDATIONS MADE FOR SKIN PROTECTION. DISCUSSED WITH NURSING STAFF. [facility]
[2021-04-28 09:53] LABS: EOSINOPHILS % (MANUAL) 4 % (0-4); LYMPHOCYTES % (MANUAL) 16 % (16-48); MONOCYTES % (MANUAL) 5 % (0-11.0); NEUTROPHILS % (MANUAL) 75 (42-76)
[2021-04-28 12:25] LABS: HEMOGLOBIN 7.7 g/dL (13.5-17.5)
[2021-04-28] MEDS ORDERED: MAGNESIUM HYDROXIDE 30 ML UDC PO PRN (15:00)
[2021-04-28] MEDS: IV NS 0.9% 1,000 ML IV SCH (16:28)
--- NOTE | 2021-04-28 18:47 | NUR ---
MS/RN CLOSING NOTES PT IN BED, AWAKE. AOx3-4, WITH PERIODS OF CONFUSION. ABLE TO MAKE NEEDS KNOWN. ON ROOM AIR AND TOLERATING WELL. NO SOB NOTED. NO S/SX OF RESPIRATORY DISTRESS NOTED. MARC CATHETER DRAINING CLEAR, YELLOW URINE. IV ACCESS IN L UPPER ARM MIDLINE AND PERMACATHETER. IV IS INTACT, PATENT, AND FLUSHING WELL WITH A RUNNING IV NS @100 ML/HR. WOUND VAC DRAINING SEROSANGUINEOUS DRAIN. KEPT PATIENT COMFORTABLE THROUGHOUT THE SHIFT. SAFETY PRECAUTIONS IN PLACE: BED IN LOWEST, LOCKED POSITION, SIDE RAILS UPx2, AND BRAKES ON. TABLE AND CALL LIGHT WITHIN REACH. WILL ENDORSE TO THE NEXT SHIFT FOR LEON.
[2021-04-28 20:00] VITALS: BP 156/79
[2021-04-28] MEDS: ACETAMINOPHEN 325 MG TABLET PO PRN (20:00)
--- NOTE | 2021-04-28 20:00 | NUR ---
Patient is A&Ox4 though anxious and depressed about situation. Currently feels hot. temp 103. cooling measures started. notified on-call Janna Dean who put in new orders start Vanco, blood cx, procalcitonin, UA. Wound vac on 125mmhg, clear yellow urine to elizalde. no pus or obvious sign of infection to wound vac incision sites. L leg is however, swollen. Will continue to monitor pt.
[2021-04-28 20:36] LABS: HEMOGLOBIN 7.5 g/dL (13.5-17.5)
[2021-04-28] MEDS ORDERED: VANCOMYCIN 1 GM in IV D5W 250 ML IV ONE (21:00)
[2021-04-28] MEDS: GABAPENTIN 100 MG CAPSULE PO SCH (21:06)
--- NOTE | 2021-04-28 22:16 | NUR ---
urine collected called lab for pecan picker
--- NOTE | 2021-04-28 23:11 | NUR ---
temperature down to 99.9 and patient reports feeling better/comfortable.
--- NOTE | 2021-04-29 00:30 | NUR ---
Procalcitonin 2.3 provider economics instructor notified NNO.
--- NOTE | 2021-04-29 00:39 | NUR ---
clarified with MD bernstein to give zosyn despite penicillin allergy. Patient reports not remembering a reaction and that he was allergic as a very young kid. Zosyn given at [facility] previously on day of admission without reaction.
[2021-04-29] MEDS ORDERED: PIPERACILLIN /TAZOBACTAM 3.375 G VIAL IV ONE (00:55)
[2021-04-29] MEDS ORDERED: PIPERACILLIN /TAZOBACTAM 3.375 G in IV D5W 50 ML IV ONE (01:00)
[2021-04-29] MEDS: MORPHINE SULFATE INJ 4 MG/ML DISP.SYRIN IV PRN ×6 (01:05→21:11)
[2021-04-29] MEDS: IV NS 0.9% 1,000 ML IV SCH ×2 (02:11→13:14)
[2021-04-29] MEDS: LORAZEPAM INJ 2 MG/ML VIAL IV PRN ×4 (04:12→21:10)
[2021-04-29] MEDS: ACETAMINOPHEN 325 MG TABLET PO PRN ×2 (04:16→13:13)
[2021-04-29 05:18] LABS: BASOPHILS # (AUTO) 0.1 K/uL (0.0-0.2); BASOPHILS % (AUTO) 0.5 % (0.0-2.0); EOSINOPHILS % (AUTO) 0.1 % (0.0-6.0); HEMATOCRIT 23 % (39-51); HEMOGLOBIN 7.8 g/dL (13.5-17.5); LYMPHOCYTES # (AUTO) 0.4 K/uL (0.8-4.8); LYMPHOCYTES % (AUTO) 4.1 % (20.0-44.0); MEAN CORPUSCULAR HGB CONC 34 g/dl (31.0-36.0); MEAN CORPUSCULAR VOLUME 90 fL (80-96); MONOCYTES # (AUTO) 0.8 K/uL (0.1-1.30); MONOCYTES % (AUTO) 8.2 % (2.0-12.0); NEUTROPHILS # (AUTO) 8.6 K/uL (1.8-8.9); NEUTROPHILS % (AUTO) 87.1 % (43.0-81.0); PLATELET COUNT (AUTO) 262 K/uL (150-450); RED BLOOD CELL COUNT(AUTO) 2.55 MIL/uL (4.5-6.0); WHITE BLOOD COUNT (AUTO) 9.9 K/uL (4.3-11.0)
[2021-04-29 05:29] LABS: BILIRUBIN,URINE NEGATIVE (NEGATIVE); COLOR,URINE YELLOW (YELLOW); LEUKOCYTE ESTERASE ,URINE TRACE (NEGATIVE); NITRITE, URINE NEGATIVE (NEGATIVE); PH,URINE 6.5 (5.0-8.0); PROTEIN,URINE NEGATIVE (NEGATIVE); UGLUCOSE NEGATIVE (NEGATIVE); UROBILINOGEN,URINE 0.2 EU/dL (0.2)
[2021-04-29 05:37] LABS: ALBUMIN 2.2 g/dL (3.4-5.0); BILIRUBIN,TOTAL 0.6 mg/dL (0.2-1.0); CALCIUM, SERUM 7.4 mg/dL (8.5-10.1); CREATININE 3.5 mg/dL (0.6-1.3); MAGNESIUM 1.6 mg/dL (1.8-2.4); PHOSPHORUS 4.3 mg/dL (2.5-4.9); POTASSIUM 4.1 mmol/L (3.5-5.1); TOTAL PROTEIN, SERUM 5.6 g/dL (6.4-8.2)
[2021-04-29 05:46] LABS: BACTERIA,URINE Few /HPF (None Seen); RBC,URINE 0-2 /HPF (0-2); SQUAMOUS EPITHELIAL CELL,UR Few /HPF (None Seen)
--- NOTE | 2021-04-29 06:28 | NUR ---
Patient c/o pain and anxiety several times -medicated with PRNs as per MD order. Patient says he feels much better after being given PRN Tylenol and started on antibiotics -is thankful of care this shift. Pt. is however still very anxious about his state. Temp went down to 99.7 with Tylenol and cooling measures. 50cc output serosanguineous to wound vac overnight. Appears comfortable at this time. No signs of distress. Denies any needs.
--- NOTE | 2021-04-29 07:20 | NUR ---
MS RN OPENING NOTES RECEIVED PT IN BED, AWAKE, A/O X4. VERBALLY RESPONSIVE, NO SIGNS OF ACUTE DISTRESS. ON ROOM AIR, NO SOB NOTED. NENITA ML INTACT AND PATENT, NS @100ML/HR RUNNING. WITH WOUND VAC, INTACT, TOLERATED WELL. DENIES ANY CHILLS AT THIS TIME. SAFETY MEASURES IN PLACE. BED LOCKED AND IN LOWEST POSITION, SR UP X2, CALL LIGHT PLACED WITHIN EASY REACH, WILL CONTINUE TO MONITOR.
[2021-04-29] MEDS: ZOSYN IVPB 2.25 G in IV D5W 50ml IV SCH ×4 (07:28→23:29)
[2021-04-29] MEDS: PANTOPRAZOLE 40 MG TABLET.DR PO SCH (07:34)
[2021-04-29 08:00] VITALS: BP 125/73
[2021-04-29] MEDS ORDERED: PIPERACILLIN /TAZOBACTAM 3.375 G in IV D5W 50 ML IV SCH (08:00)
--- NOTE | 2021-04-29 08:04 | NUR ---
WOUND CARE FOLLOW UP: WOUND VAC FUNCTIONING WELL TO LEFT GLUTEAL AND THIGH WOUNDS AT 125mmHg CONTINUOUS SETTING WITH SMALL AMOUNT OF PINK/BROWNISH DRAINAGE IN CANISTER. SOME SWELLING NOTED TO LEFT LOWER EXTREMITY. ELEVATED ON PILLOW. PLAN TO CHANGE DRESSING IN AM. IN AGREEMENT WITH PLAN OF CARE.
[2021-04-29] MEDS: CARVEDILOL 3.125 MG TABLET PO SCH ×2 (08:31→21:12)
--- NOTE | 2021-04-29 11:30 | NUR ---
RN NOTES RECEIVED A CALL FROM DR. BEY, PER , HE'LL COME LATER ON TO REMOVE PT'S DIALYSIS CATHETER, WITH NEW ORDERS RECEIVED, CARRIED OUT.
[2021-04-29 12:28] LABS: HEMOGLOBIN 7.7 g/dL (13.5-17.5)
[2021-04-29] MEDS ORDERED: LIDOCAINE HCL/PF 1% 30 ML VIAL IM ONE (12:30)
[2021-04-29] MEDS: GABAPENTIN 100 MG CAPSULE PO SCH ×2 (14:23→17:42)
[2021-04-29 16:00] VITALS: BP 116/53
--- NOTE | 2021-04-29 17:45 | NUR ---
RN NOTES S/P REMOVAL OF RIGHT IJ NON-TUNNELLED DIALYSIS CATHETER AT BEDSIDE BY DR. BEY. PATIENT TOLERATED PROCEDURE WELL. PRESSURE DRESSING APPLIED TO SITE. WILL CONTINUE TO MONITOR.
--- NOTE | 2021-04-29 18:55 | NUR ---
MS RN CLOSING NOTES PT IN BED AWAKE. A/O X4. ABLE TO MAKE NEEDS KNOWN, NO SIGNS OF ACUTE DISTRESS NOTED. ON ROOM AIR, NO SOB NOTED, BREATHING EVEN AND UNLABORED. NENITA ML INTACT AND PATENT, NS @100ML/HR RUNNING, TOLERATED WELL. WITH WOUND VAC, INTACT, NOTED WITH SEROSANGUINEOUS OUTPUT IN THE CANISTER. AFEBRILE THROUGHOUT THE SHIFT. ALL DUE MEDS GIVEN. MEDICATED FOR PAIN. SAFETY MEASURES IN PLACE. BED LOCKED AND IN LOWEST POSITION, SR UP X2, CALL LIGHT PLACED WITHIN EASY REACH. WILL ENDORSE TO NEXT SHIFT.
--- NOTE | 2021-04-29 19:20 | NUR ---
MS RN OPENING NOTES: RECEIVED REPORT AT PATIENT'S BEDSIDE. PATIENT OBSERVED TO BE AWAKE, COMMUNICATIVE AND COOPERATIVE. ALERT AND ORIENTED X4. NAD AND VSS. PATIENT VERBALIZES NEEDING "MEDICATION FOR PAIN" ATC. IV FLUIDS INFUSING TO STEVEN MIDLINE. BLE NOTED TO HAVE 2+ PITTING EDEMA AND SENSITIVE (PAINFUL) TO THE SLIGHTEST TOUCH. F/C IN PLACE AND DRAINING CLEAR YELLOW URINE. WOUND VAC TO LLE SITES X2 DRAINING SEROSANGUINEOUS FLUID. BILATERAL HEELS FLOATING. ASSISTED WITH REPOSITIONING. PATIENT IS ABLE TO MOVE BUA WELL AND WITHOUT DIFFICULTY. DRINKING FLUIDS INDEPENDENTLY. CALL LIGHT AND FREQUENTLY USED ITEMS WITHIN REACH.
[2021-04-29 20:30] LABS: HEMOGLOBIN 7.5 g/dL (13.5-17.5)
[2021-04-29] MEDS ORDERED: VANCOMYCIN 1 GM in IV D5W 250 ML IV SCH (21:00)
[2021-04-29] MEDS: HYDROCODONE/APAP 5/325MG TABLET PO PRN (23:30)
[2021-04-30] MEDS: LORAZEPAM INJ 2 MG/ML VIAL IV PRN ×3 (02:12→13:36)
[2021-04-30] MEDS: MORPHINE SULFATE INJ 4 MG/ML DISP.SYRIN IV PRN ×6 (02:13→19:49)
[2021-04-30 04:07] LABS: HEMOGLOBIN 7.5 g/dL (13.5-17.5)
[2021-04-30 04:15] LABS: ALBUMIN 2.1 g/dL (3.4-5.0); BILIRUBIN,TOTAL 0.4 mg/dL (0.2-1.0); CALCIUM, SERUM 7.4 mg/dL (8.5-10.1); CREATININE 2.5 mg/dL (0.6-1.3); MAGNESIUM 1.4 mg/dL (1.8-2.4); POTASSIUM 3.3 mmol/L (3.5-5.1); TOTAL PROTEIN, SERUM 5.5 g/dL (6.4-8.2)
[2021-04-30] MEDS: IV NS 0.9% 1,000 ML IV SCH ×3 (04:29→17:30)
--- NOTE | 2021-04-30 05:15 | NUR ---
MS RN NOTES: NOTIFIED CREATIVE WRITING PROFESSOR, LW PATIENT K+ 3.3, DOWN FROM 4.1 YESTERDAY. CREATIVE WRITING PROFESSOR ADVISED TO WAIT FOR NEPHROLOGY AND UNLESS RESULT IS CRITICALLY LOW NO COMMUNICATION WITH HER [facility]ESS[facility] PHARMAC[facility] WILL REPLACE PER ELECTROLYTE PROTOCOL.
[2021-04-30] MEDS ORDERED: VANCOMYCIN POST DIALYSIS 500MG IV PRN (06:00)
[2021-04-30] MEDS: ZOSYN IVPB 2.25 G in IV D5W 50ml IV SCH ×3 (06:30→17:47)
[2021-04-30 08:00] VITALS: BP 133/83
--- NOTE | 2021-04-30 08:00 | NUR ---
RN OPENING NOTE PT AWAKE IN BED. ON RA WITH NO RESPIRATORY DISTRESS. A/O X4 AND [place] SPEAKING. PAIN PRESENT AND PAIN MEDS GIVEN PER PROTOCOL. WOUND VAC PRESENT ON L THIGH. L THIGH AND L BUTTOCK INCISIONS PRESENT. EDEMA PRESENT ON B LE. F/C PRESENT. ON BEDREST. STEVEN MIDLINE PRESENT. R CW HD CATH REMOVED. LABS AND ORDERS REVIEWED. SAFETY MEASURES IN PLACE. SIDE RAILS RAISED. BED LOWERED. CALL LIGHT WITHIN REACH. WILL CONTINUE TO MONITOR.
[2021-04-30] MEDS: PANTOPRAZOLE 40 MG TABLET.DR PO SCH (08:20)
[2021-04-30] MEDS: GABAPENTIN 100 MG CAPSULE PO SCH ×3 (08:21→16:08)
[2021-04-30 08:27] LABS: BASOPHILS # (AUTO) 0.1 K/uL (0.0-0.2); BASOPHILS % (AUTO) 2.1 % (0.0-2.0); EOSINOPHILS % (AUTO) 3.6 % (0.0-6.0); HEMATOCRIT 22 % (39-51); HEMOGLOBIN 7.5 g/dL (13.5-17.5); LYMPHOCYTES # (AUTO) 0.8 K/uL (0.8-4.8); LYMPHOCYTES % (AUTO) 19.2 % (20.0-44.0); MEAN CORPUSCULAR HGB CONC 34 g/dl (31.0-36.0); MEAN CORPUSCULAR VOLUME 90 fL (80-96); MONOCYTES # (AUTO) 0.7 K/uL (0.1-1.30); MONOCYTES % (AUTO) 17.3 % (2.0-12.0); NEUTROPHILS # (AUTO) 2.4 K/uL (1.8-8.9); NEUTROPHILS % (AUTO) 57.8 % (43.0-81.0); PLATELET COUNT (AUTO) 234 K/uL (150-450); RED BLOOD CELL COUNT(AUTO) 2.48 MIL/uL (4.5-6.0); WHITE BLOOD COUNT (AUTO) 4.2 K/uL (4.3-11.0)
[2021-04-30] MEDS: CARVEDILOL 3.125 MG TABLET PO SCH (08:52)
[2021-04-30] MEDS ORDERED: VANCOMYCIN 1 GM in IV D5W 250 ML IV SCH (09:00)
[2021-04-30 10:42] LABS: BAND % (MANUAL) 1 % (0.0-5.0); EOSINOPHILS % (MANUAL) 2 % (0-4); LYMPHOCYTES % (MANUAL) 22 % (16-48); MONOCYTES % (MANUAL) 9 % (0-11.0); NEUTROPHILS % (MANUAL) 66 (42-76)
--- NOTE | 2021-04-30 10:48 | NUR ---
WOUND CARE FOLLOW UP: PT SEEN FOR WOUND VAC DRESSING CHANGE. LEFT GLUTEAL WOUND MEASURES 16CM X 8CM X 3.5CM AND LEFT THIGH WOUND MEASURES 15CM X 4CM X 0.1CM. FASCIA NOTED TO THIGH WOUND. BOTH WOUNDS HAVE RED GRANULATION TISSUE, SMALL AMOUNT OF SEROSANGUINOUS DRAINAGE AND NO ODOR. CANISTER WAS CHANGED WITH 600cc PINK/BROWN DRAINAGE. PT TOLERATED WELL. SKIN PREP AND VAC DRAPE WAS USED TO PERIWOUND AREAS, 3 PIECES OF GRANUFOAM USED FOR GLUTEAL WOUND AND ONE PIECE FOR THIGH WOUND. BRIDGING TECHNIQUE WAS USED. WILL FOLLOW. PLAN FOR NEXT DRESSING CHANGE TUESDAY. DISCUSSED WITH NURSING STAFF AND SURGICAL TEAM.
[2021-04-30] MEDS ORDERED: MORPHINE SULFATE INJ 4 MG/ML DISP.SYRIN IV ONE (11:00)
[2021-04-30] MEDS ORDERED: POTASSIUM CHLORIDE 20 MEQ TAB.PRT.SR PO ONE (12:30)
[2021-04-30] MEDS: HYDROCODONE/APAP 5/325MG TABLET PO PRN (13:43)
[2021-04-30 15:13] LABS: HEMOGLOBIN 7.2 g/dL (13.5-17.5)
[2021-04-30 16:00] VITALS: BP 134/91
--- NOTE | 2021-04-30 18:50 | NUR ---
RN CLOSING NOTE PT AWAKE IN BED. ON RA WITH NO RESPIRATORY DISTRESS. A/O X4 AND [place] SPEAKING. PAIN PRESENT AND PAIN MEDS GIVEN PER PROTOCOL. WOUND VAC PRESENT ON L THIGH. L THIGH AND L BUTTOCK INCISIONS PRESENT. EDEMA PRESENT ON B LE. F/C PRESENT. ON BEDREST. STEVEN MIDLINE PRESENT. R CW HD CATH REMOVED. LABS AND ORDERS REVIEWED. SAFETY MEASURES IN PLACE. SIDE RAILS RAISED. BED LOWERED. CALL LIGHT WITHIN REACH. WILL GIVE REPORT TO NIGHT NURSE FOR LEON.
== END 2021-04-30 20:20 | DRG 907 ==
LOC: ER 10:28 → TRANSITION 14:15 → ICU 19:16 → TELE 04-15 12:12 → MED 04-18 07:45
PROVIDERS: ADMIT Nurse Practitioner Acute Care
PROC: 0KNP0ZZ Release Left Hip Muscle, Open Approach (ICD-10-PCS; principal; 2021-04-12)
PROC: 0KNP0ZZ Release Left Hip Muscle, Open Approach (ICD-10-PCS; 2021-04-12)
PROC: 05H533Z Insertion of Infusion Device into Right Subclavian Vein, Percutaneous Approach (ICD-10-PCS; 2021-04-12)
PROC: B546ZZA Ultrasonography of Right Subclavian Vein, Guidance (ICD-10-PCS; 2021-04-12)
PROC: 05HM33Z Insertion of Infusion Device into Right Internal Jugular Vein, Percutaneous Approach (ICD-10-PCS; 2021-04-13)
PROC: B543ZZA Ultrasonography of Right Jugular Veins, Guidance (ICD-10-PCS; 2021-04-13)
PROC: 0KBP0ZZ Excision of Left Hip Muscle, Open Approach (ICD-10-PCS; 2021-04-16)
PROC: 0KBR0ZZ Excision of Left Upper Leg Muscle, Open Approach (ICD-10-PCS; 2021-04-16)
PROC: 0KBP0ZZ Excision of Left Hip Muscle, Open Approach (ICD-10-PCS; 2021-04-22)
PROC: 0KBR0ZZ Excision of Left Upper Leg Muscle, Open Approach (ICD-10-PCS; 2021-04-22)
PROC: 0JH63XZ Insertion of Tunneled Vascular Access Device into Chest Subcutaneous Tissue and Fascia, Percutaneous Approach (ICD-10-PCS; 2021-04-23)
PROC: 02HV33Z Insertion of Infusion Device into Superior Vena Cava, Percutaneous Approach (ICD-10-PCS; 2021-04-23)
PROC: B518YZA Fluoroscopy of Superior Vena Cava using Other Contrast, Guidance (ICD-10-PCS; 2021-04-23)
PROC: 5A1D70Z Performance of Urinary Filtration, Intermittent, Less than 6 Hours Per Day (ICD-10-PCS; 2021-04-23)
PROC: 30233N1 Transfusion of Nonautologous Red Blood Cells into Peripheral Vein, Percutaneous Approach (ICD-10-PCS; 2021-04-24)
DX: T79.A22A Traumatic compartment syndrome of left lower extremity, initial encounter (principal); I21.4 Non-ST elevation (NSTEMI) myocardial infarction; N17.0 Acute kidney failure with tubular necrosis; M62.82 Rhabdomyolysis; E87.1 Hypo-osmolality and hyponatremia; E83.51 Hypocalcemia; E87.5 Hyperkalemia; E66.9 Obesity, unspecified; D72.829 Elevated white blood cell count, unspecified; E11.22 Type 2 diabetes mellitus with diabetic chronic kidney disease; Z88.0 Allergy status to penicillin; E86.0 Dehydration; D64.9 Anemia, unspecified; F41.9 Anxiety disorder, unspecified; I25.10 Atherosclerotic heart disease of native coronary artery without angina pectoris; Z20.822 Contact with and (suspected) exposure to COVID-19; Z79.4 Long term (current) use of insulin; F19.10 Other psychoactive substance abuse, uncomplicated; F17.210 Nicotine dependence, cigarettes, uncomplicated; Z68.27 Body mass index [BMI] 27.0-27.9, adult; R74.01 Elevation of levels of liver transaminase levels; G58.9 Mononeuropathy, unspecified; M72.8 Other fibroblastic disorders; E11.41 Type 2 diabetes mellitus with diabetic mononeuropathy; M21.379 Foot drop, unspecified foot
CPT/HCPCS: 36415; 36600; 71045-TC; 72192-TC; 76770-TC; 80048-TC; 80053-TC; 80076-TC; 80202-TC; 81001; 82140-TC; 82550-TC; 82553; 83605-TC; 83735-TC; 84100-TC; 84443-TC; 84484-TC; 85025-TC; 85027-TC; 85730-TC; 86704; 86705; 86707; 86803; 86850-TC; 87040-TC; 87081-TC; 87086-TC; 87340; 87806; 90935-TC; 93307-TC; 93970-TC; 93971-TC; 94799-TC; 97110-TC; 97112-TC; 97530-TC; A4217; A6253; A6403; A6407; C1750; C1769; C1894; C9113; G0378; J0330; J0610; J0690; J1100; J1170; J1644; J1815; J1885; J1940; J2060; J2250; J2270; J2370; J2405; J2543; J2704; J3010; J3370; J3490; J7030; J7040; J7050; J7060; P9016; Q9967

== ENCOUNTER 2023-09-15 06:17 | Emergency (ER) | payer BC ==
[~2023-09-15 06:17] MED LIST: CHOL100062 PO; METF-440 PO; TEST200V3 IM
== END 2023-09-15 06:24 | disposition left against medical advice (07) ==
LOC: ER 06:19
DX: T65.91XA Toxic effect of unspecified substance, accidental (unintentional), initial encounter (principal); Z53.21 Procedure and treatment not carried out due to patient leaving prior to being seen by health care provider; Y92.89 Other specified places as the place of occurrence of the external cause